=== PATIENT | male | born 1985 | race Caucasian/White ===

== ENCOUNTER 2020-07-11 22:37 | Emergency (ER) | payer OTHER, MEDICAID, SELFPAY ==
--- NOTE | 2020-07-11 22:38 | DI.RAD.S_ITS ---
PROCEDURE: XR CHEST 1V INDICATIONS: chest pain TECHNIQUE: One view of the chest was acquired. COMPARISON: [facility], CR, XR CHEST 2 VIEWS, 07/10/2020, 15:45. FINDINGS: Surgical changes and devices: None. Lungs and pleura: Lungs are clear. No pleural effusions or pneumothorax. Mediastinum: Mediastinal contours appear normal. Heart size is normal. Bones and chest wall: No suspicious bony lesions. Overlying soft tissues appear unremarkable. IMPRESSION: No acute cardiopulmonary disease process. Dictated by: Julia Lira MD, PhD on 07/12/2020 at 8:16 Approved by: Julia Lira MD, PhD on 07/12/2020 at 8:26
[2020-07-11 22:47] VITALS: BP 154/100; PULSE 101; RESP 20; TEMP 36.9; O2SAT 96; BMI 20.1
[2020-07-11] MEDS: KETOROLAC 60 MG/2 ML VIAL 15 MG IV (22:50)
[2020-07-11 22:55] LABS: Add Manual Diff / Slide Review NO; Basophils Absolute Auto 100 /uL (0-100); Basophils Percent Auto 0.9 % (0-2); Eosinophils Absolute Auto 200 /uL (0-450); Eosinophils Percent Auto 1.3 % (2-4); Hematocrit 37.6 % (41-53); Hemoglobin 12.6 g/dL (13.5-17.5); Lymphocytes Absolute Auto 2500 /uL (1100-4500); Lymphocytes Percent Auto 15.4 % (25-40); Mean Corpuscular HGB Conc 33.6 % (30-36); Mean Corpuscular Hemoglobin 31.2 PG (26-34); Mean Corpuscular Volume 92.8 fL (80-100); Monocytes Absolute Auto 1700 /uL (0-900); Monocytes Percent Auto 10.5 % (3-14); Neutrophils Absolute Auto 11800 /uL (1500-7000); Neutrophils Percent Auto 71.9 % (50-75); Platelet Count 246 X10^3/uL (150-400); Red Blood Cell Count 4.05 X10^6/uL (4.5-5.9); Red Cell Distribution Width 13.8 % (11.6-14.8); White Blood Cell Count 16.4 X10^3/uL (4.5-11.0)
[2020-07-11 23:03] VITALS: BP 147/93; PULSE 105; RESP 20; O2SAT 97
--- NOTE | 2020-07-11 23:03 | PC.NURSE ---
Pt's IV does not draw. Butterfly needle used to get first set of BC. Pt refused 2nd stick for the 2nd set of BC from myself or the lab.
[2020-07-11 23:05] LABS: Prothrombin Time 11.6 SECONDS (10.1-12.7)
[2020-07-11 23:06] LABS: Creatine Kinase 498 U/L (55-170); Lipase 107 U/L (23-300); Magnesium 1.9 mg/dL (1.6-2.3)
[2020-07-11 23:08] LABS: PTT Partial Thromboplastin Tim 28 SECONDS (26.4-36.2)
[2020-07-11 23:17] LABS: D Dimer < 200 ng/mL (<230)
[2020-07-11 23:18] LABS: Erythrocyte Sedimentation Rate 23 MM/HR (0-15)
[2020-07-11 23:19] LABS: NT-proBNP (BNP-Adult 18+) 58 pg/mL (<125); Troponin I 0.021 ng/mL (0.01-0.034)
[2020-07-11 23:21] LABS: CKMB % Relative Index 1.2 % (1.5-5.0); Creatine Kinase MB 6.15 ng/mL (<2.37)
[2020-07-11 23:25] LABS: C-Reactive Protein Quant 2.8 mg/dL (<1.0)
[2020-07-11 23:26] LABS: Procalcitonin 0.11 ng/mL (<0.5)
[2020-07-11 23:30] VITALS: BP 136/94; PULSE 114; RESP 20; O2SAT 98
--- NOTE | 2020-07-12 00:09 | ED.CHESTPAIN ---
HPI - Chest Pain General Chief Complaint: Chest Pain Stated Complaint: Chest pain Time Seen by Provider: 07/11/20 22:38 Source: patient and EMS Mode of arrival: EMS Limitations: no limitations History of Present Illness HPI narrative: 35M daily smoker with non-contributory medical history presents with the chief complaint of chest pain in his left chest for multiple days. He denies dizziness, weakness, lightheadedness. He denies any fever or chills. He denies runny nose, sore throat or cough. He states his pain is sharp and stabbing and worse with a deep breath and moving. He denies any injury. It is not associated with nausea, vomiting or diarrhea. He denies any exposure to persons known to have COVID. He denies any use of IV drugs. He denies any recent travel MD complaint: chest pain Onset (ago): day(s) Duration: constant Pain location: left chest Severity: moderate Quality: sharp Pain radiation: back and neck Relieving factors: rest Exacerbating factors: inspiration and movement Treatments prior to arrival chest pain: none Related Data Previous Rx's Medication Instructions Recorded colchicine 0.6 mg PO BID 90 Days #180 cap 07/12/20 Allergies Allergy/AdvReac Type Severity Reaction Status Date / Time No Known Drug Allergies Allergy Verified 07/11/20 22:50 Review of Systems Constitutional Constitutional: Denies chills, Denies fatigue, Denies fever(s), Denies frequent falls, Denies lethargy and Denies weakness Eyes Eyes: Denies change in vision, Denies eye discharge, Denies irritation and Denies loss of vision ENT Ears, Nose, Mouth, and Throat: Denies change in voice, Denies dizziness, Denies neck pain, Denies sore throat and Denies throat swelling Cardiovascular Cardiovascular: Reports chest pain, Denies irregular heart rhythm, Denies lightheadedness, Denies palpitations, Denies dyspnea, Denies dyspnea on exertion and Denies orthopnea Respiratory Respiratory: Denies cough, Denies dyspnea, Denies dyspnea on exertion and Denies wheezing Gastrointestinal Gastrointestinal: Denies abdominal pain, Denies change in bowel habits, Denies diarrhea, Denies nausea and Denies vomiting Musculoskeletal Musculoskeletal: Denies neck pain and Denies numbness Integumentary/Breasts Skin/Breast: Denies pruritus, Denies erythema, Denies rash and Denies wounds Neurologic Neurologic: Denies behavioral changes, Denies confusion, Denies dizziness, Denies frequent falls, Denies loss of vision, Denies numbness and Denies weakness Psychiatric Psychiatric: Denies anxiety, Denies behavioral changes, Denies confusion, Denies depression, Denies homicidal ideation and Denies suicidal ideation Endocrine Endocrine: Denies fatigue, Denies flushing and Denies palpitations Hematologic/Lymphatic Hematologic/Lymphatic: Denies easy bruising Allergic/Immunologic Allergic/Immunologic: Denies urticaria, Denies throat swelling and Denies wheezing Patient History Social History Smoking Status: Current every day smoker Smoking Status: Current every day smoker tobacco type: cigarettes Substance Use Type: former substance user Exam Narrative Exam Narrative: GENERAL: [35] year old patient appears stated age. Well-nourished, well-developed patient, in mild distress. HEAD: Atraumatic. Normocephalic. EYES: Pupils equal round and reactive. Extraocular motions intact. No scleral icterus. No injection or drainage. ENT: Nose without bleeding, purulent drainage. Throat without erythema, tonsillar hypertrophy or exudate. Airway patent. NECK: Trachea midline. Non tender CARDIOVASCULAR: Regular rate and rhythm without murmurs, gallops, or rubs. RESPIRATORY: Clear to auscultation. Breath sounds equal bilaterally. No wheezes, rales, or rhonchi. GASTROINTESTINAL: Abdomen soft, non-tender, nondistended. EXTREMITIES: No edema or joint tenderness. BACK: Nontender without deformity or crepitance. No flank tenderness. NEURO: AOx3. SKIN: No rash or erythema of visible areas Initial Vital Signs Initial Vital Signs: Vital Signs Temperature 98.4 F 07/11/20 22:47 Pulse Rate 101 H 07/11/20 22:47 Respiratory Rate 20 07/11/20 22:47 Blood Pressure 154/100 H 07/11/20 22:47 Pulse Oximetry 96 07/11/20 22:47 Course Orders Ordered: ED Orders 07/11/20 22:38 XR chest 1V Stat EKG-12 Lead Stat 07/11/20 22:44 C-Reactive Protein Quant Stat Complete Blood Count AUTO DIFF Stat D Dimer Stat Erythrocyte Sedimentation Rate Stat Lipase Stat Magnesium Stat NT-proBNP (BNP-Adult 18+) Stat Partial Thromboplastin Time Stat Procalcitonin Stat Prothrombin Time INR Stat Troponin & CK Cardiac Panel Stat 07/11/20 22:47 Blood Culture Stat 07/12/20 00:14 EKG-12 Lead Stat Discontinued Medications Colchicine (Colcrys) 0.6 mg PO NOW ONE Stop: 07/12/20 00:30 Last Admin: 07/12/20 00:44 Dose: 0.6 mg Documented by: VAL Ketorolac Tromethamine (Toradol) 15 mg IV NOW ONE Stop: 07/11/20 22:38 Last Admin: 07/11/20 22:50 Dose: 15 mg Documented by: VAL Vital Signs Vital signs: Vital Signs - 8 hr 07/11/20 22:47 07/11/20 23:03 07/11/20 23:30 Temperature 98.4 F Pulse Rate 101 H 105 H 114 H Respiratory Rate 20 20 20 Blood Pressure 154/100 H 147/93 H 136/94 H Pulse Oximetry 96 97 98 07/12/20 00:29 07/12/20 00:30 Temperature Pulse Rate 104 H 99 H Respiratory Rate 24 25 H Blood Pressure 160/101 H 151/95 H Pulse Oximetry 97 97 MDM - Chest Pain Lab Data Result diagrams: 07/11/20 22:44 Labs: Lab Results 07/11/20 07/11/20 07/11/20 Range/Units 22:44 22:44 22:44 WBC 16.4 H (4.5-11.0) X10^3/uL RBC 4.05 L (4.5-5.9) X10^6/uL Hgb 12.6 L (13.5-17.5) g/dL Hct 37.6 L (41-53) % MCV 92.8 (80-100) fL MCH 31.2 (26-34) PG MCHC 33.6 (30-36) % RDW 13.8 (11.6-14.8) % Plt Count 246 (150-400) X10^3/uL Neut % (Auto) 71.9 (50-75) % Lymph % (Auto) 15.4 L (25-40) % [place] % (Auto) 10.5 (3-14) % Eos % (Auto) 1.3 L (2-4) % Baso % (Auto) 0.9 (0-2) % Neut # (Auto) 65166 H (7598-0242) /uL Lymph # (Auto) 2500 (5176-3896) /uL [place] # (Auto) 1700 H (0-900) /uL Eos # (Auto) 200 (0-450) /uL Baso # (Auto) 100 (0-100) /uL ESR 23 H (0-15) MM/HR PT 11.6 (10.1-12.7) SECONDS INR 1.0 (0.9-1.3) APTT 28 (26.4-36.2) SECONDS D-Dimer (<230) ng/mL Magnesium 1.9 (1.6-2.3) mg/dL Total Creatine Kinase 498 H (55-170) U/L CK-MB (CK-2) 6.15 H (<2.37) ng/mL CK-MB (CK-2) Rel Index 1.2 L (1.5-5.0) % Troponin I 0.021 (0.01-0.034) ng/mL C-Reactive Protein 2.8 H (<1.0) mg/dL NT-Pro-B Natriuret Pep 58 (<125) pg/mL Lipase 107 (23-300) U/L Procalcitonin (<0.5) ng/mL 07/11/20 07/11/20 Range/Units 22:44 22:44 WBC (4.5-11.0) X10^3/uL RBC (4.5-5.9) X10^6/uL Hgb (13.5-17.5) g/dL Hct (41-53) % MCV (80-100) fL MCH (26-34) PG MCHC (30-36) % RDW (11.6-14.8) % Plt Count (150-400) X10^3/uL Neut % (Auto) (50-75) % Lymph % (Auto) (25-40) % [place] % (Auto) (3-14) % Eos % (Auto) (2-4) % Baso % (Auto) (0-2) % Neut # (Auto) (2653-8556) /uL Lymph # (Auto) (0167-0751) /uL [place] # (Auto) (0-900) /uL Eos # (Auto) (0-450) /uL Baso # (Auto) (0-100) /uL ESR (0-15) MM/HR PT (10.1-12.7) SECONDS INR (0.9-1.3) APTT (26.4-36.2) SECONDS D-Dimer < 200 (<230) ng/mL Magnesium (1.6-2.3) mg/dL Total Creatine Kinase (55-170) U/L CK-MB (CK-2) (<2.37) ng/mL CK-MB (CK-2) Rel Index (1.5-5.0) % Troponin I (0.01-0.034) ng/mL C-Reactive Protein (<1.0) mg/dL NT-Pro-B Natriuret Pep (<125) pg/mL Lipase (23-300) U/L Procalcitonin 0.11 (<0.5) ng/mL ECG Data Interpretation: EKG is normal sinus rhythm rate [ 100] and free of any signs of ischemia or ectopy. MT depressions in majority of leads, widespread mild ST elevation consistent with pericarditis MDM Narrative Medical decision making narrative: 35M with pleuritic chest pain, normal troponin, elevated inflammatory markers, EKG noting MT depressions and subtle widespread ST elevations consistent with pericarditis. No fever, IVDA, chills, endocarditis is considered, but thought less likely. PE considered, but negative D Dimer makes this unlikely. Patient treated for pericarditis and given extensive return precautions. Questions answered to his satisfaction Discharge Plan Departure Patient Disposition: Home Clinical Impression: Atypical chest pain Pericarditis Qualifiers: Pericarditis type: unspecified type Chronicity: acute Qualified Code(s): I30.9 - Acute pericarditis, unspecified Discharge Date/Time: 07/12/20 00:50 Instructions: DI for Pericarditis Activity Restrictions/Additional Instructions: *You have been diagnosed with [ atypical chest pain, likely from pericarditis] *What to do: *Take medications as directed *Follow up with your primary care provider in 2-3 days, call for an appointment. Let them know you were seen in the Emergency Department and that we ask that you be seen in follow up *Return to ER if you should have any new, worsening or concerning symptoms, such as [fever, shaking chills, worsening pain or other bothersome symptoms ] Prescriptions: New colchicine 0.6 mg capsule 0.6 mg PO BID 90 Days Qty: 180 RF: 0 Referrals: Located Within [facility] [Outside] Naya Gomez MD [Physician] -
[2020-07-12 00:29] VITALS: BP 160/101; PULSE 104; RESP 24; O2SAT 97
[2020-07-12 00:30] VITALS: BP 151/95; PULSE 99; RESP 25; O2SAT 97
[2020-07-12] MEDS: COLCHICINE 0.6 MG TABLET PO (00:44)
== END 2020-07-12 00:50 | disposition home or self-care (01) ==
PROVIDERS: Emergency Provider Emergency Medicine
DX: I30.9 Acute pericarditis, unspecified (principal)
CPT/HCPCS: 36415; 71045; 82550; 82553; 83690; 83735; 83880; 84145; 84484; 85025; 85379; 85610; 85651; 85730; 86140; 87040; 93005; 96374; 99284; J1885

== ENCOUNTER 2020-11-23 15:02 | Emergency (ER) | payer OTHER, MEDICAID, SELFPAY ==
[2020-11-23] VITALS (19 sets, daily range): BP systolic 148–215; BP diastolic 90–117; PULSE 95–113; RESP 16–26; TEMP 36.6; O2SAT 94–100
--- NOTE | 2020-11-23 16:07 | DI.RAD.S_ITS ---
PROCEDURE: XR CHEST 1V INDICATIONS: chest pain TECHNIQUE: One view of the chest was acquired. COMPARISON: [facility], CR, XR CHEST 2VW, 12/02/2016, 16:28. [facility], CR, XR [employer] [facility] CXR MIN 3VW LT, 06/19/2017, 6:35. [facility], CR, XR CHEST 2 VIEWS, 07/10/2020, 15:45. [facility], CR, XR CHEST 1V, 07/11/2020, 23:03. FINDINGS: Surgical changes and devices: None. Lungs and pleura: Lungs are clear. No pleural effusions or pneumothorax. Mediastinum: Mediastinal contours appear normal. Heart size is normal. Bones and chest wall: No suspicious bony lesions. Overlying soft tissues appear unremarkable. IMPRESSION: Portable chest within normal limits. Dictated by: Wong Houston M.D. on 11/23/2020 at 15:27 Approved by: Wong Houston M.D. on 11/23/2020 at 15:27
--- NOTE | 2020-11-23 16:08 | ED.CHESTPAIN ---
HPI - Chest Pain General Chief Complaint: Urogenital-Male Stated Complaint: States hearts just fluttering Time Seen by Provider: 11/23/20 15:08 Source: patient Mode of arrival: Ambulatory Limitations: no limitations History of Present Illness HPI narrative: 35-year-old male smoker, uses methamphetamine presents with a chief complaint of elevated blood pressure, and fluttering 1 chest over the course of the day. He denies any headache, blurred vision or focal neurologic findings. He denies any chest pain or significant shortness of breath. He has had no nausea, vomiting or diarrhea. He had his any fever, chills, urinary complaints such as dysuria, frequency or urgency. MD complaint: other Onset (ago): day(s) Duration: constant Onset: during rest Quality: tightness Relieving factors: nothing Exacerbating factors: nothing Treatments prior to arrival chest pain: none Related Data Previous Rx's Medication Instructions Recorded albuterol sulfate 2 puff INHALATION QID PRN #8.5 g 11/23/20 metoprolol tartrate 25 mg PO BID #30 tab 11/23/20 quetiapine [Seroquel] 300 mg PO BEDTIME #14 tab 11/23/20 Allergies Allergy/AdvReac Type Severity Reaction Status Date / Time No Known Drug Allergies Allergy Verified 07/11/20 22:50 Review of Systems Constitutional Constitutional: Denies chills, Denies fatigue, Denies fever(s), Denies frequent falls, Denies lethargy and Denies weakness Eyes Eyes: Denies change in vision, Denies eye discharge, Denies irritation and Denies loss of vision ENT Ears, Nose, Mouth, and Throat: Denies change in voice, Denies dizziness, Denies neck pain, Denies sore throat and Denies throat swelling Cardiovascular Cardiovascular: Denies chest pain, Denies irregular heart rhythm, Denies lightheadedness, Reports palpitations, Denies dyspnea, Denies dyspnea on exertion and Denies orthopnea Respiratory Respiratory: Denies cough, Denies dyspnea, Denies dyspnea on exertion and Denies wheezing Gastrointestinal Gastrointestinal: Denies abdominal pain, Denies change in bowel habits, Denies diarrhea, Denies nausea and Denies vomiting Musculoskeletal Musculoskeletal: Denies neck pain and Denies numbness Integumentary/Breasts Skin/Breast: Denies pruritus, Denies erythema, Denies rash and Denies wounds Neurologic Neurologic: Denies behavioral changes, Denies confusion, Denies dizziness, Denies frequent falls, Denies loss of vision, Denies numbness and Denies weakness Psychiatric Psychiatric: Denies anxiety, Denies behavioral changes, Denies confusion, Denies depression, Denies homicidal ideation and Denies suicidal ideation Endocrine Endocrine: Denies fatigue, Denies flushing and Reports palpitations Hematologic/Lymphatic Hematologic/Lymphatic: Denies easy bruising Allergic/Immunologic Allergic/Immunologic: Denies urticaria, Denies throat swelling and Denies wheezing Patient History Social History Smoking Status: Current every day smoker substance use type: marijuana, IV drugs and methamphetamine Smoking Status: Current every day smoker tobacco type: cigarettes alcohol intake frequency: holidays/special occasions only Substance Use Type: heroin and methamphetamine Exam Narrative Exam Narrative: GENERAL: [35] year old patient appears stated age. Well-nourished, well-developed patient, in mild distress. HEAD: Atraumatic. Normocephalic. EYES: Pupils equal round and reactive. Extraocular motions intact. No scleral icterus. No injection or drainage. ENT: Nose without bleeding, purulent drainage. Throat without erythema, tonsillar hypertrophy or exudate. Airway patent. NECK: Trachea midline. Non tender CARDIOVASCULAR: Regular rate and rhythm without murmurs, gallops, or rubs. RESPIRATORY: Clear to auscultation. Breath sounds equal bilaterally. No wheezes, rales, or rhonchi. GASTROINTESTINAL: Abdomen soft, non-tender, nondistended. EXTREMITIES: No edema or joint tenderness. BACK: Nontender without deformity or crepitance. No flank tenderness. NEURO: AOx3. SKIN: No rash or erythema of visible areas Initial Vital Signs Initial Vital Signs: Vital Signs Temperature 97.8 F 11/23/20 15:23 Pulse Rate 100 H 11/23/20 15:23 Respiratory Rate 18 11/23/20 15:23 Blood Pressure 198/117 H 11/23/20 15:23 Pulse Oximetry 100 11/23/20 15:23 Course Orders Ordered: Discontinued Medications Labetalol HCl (Labetalol 20 Mg/4 Ml Syringe) 10 mg IV NOW ONE Stop: 11/23/20 17:26 Last Admin: 11/23/20 17:58 Dose: 10 mg Documented by: ZGELEYN Metoprolol Tartrate (Metoprolol Ir 25 Mg Tablet) 50 mg PO NOW ONE Stop: 11/23/20 18:24 Last Admin: 11/23/20 18:36 Dose: 50 mg Documented by: ZAHRA Reevaluation(s) Reevaluation #1: Patient's palpitations resolved nearly immediately upon his arrival and no arrhythmia was noted. Vital Signs Vital signs: Vital Signs - 8 hr 11/23/20 15:23 11/23/20 15:30 11/23/20 16:00 Temperature 97.8 F Pulse Rate 100 H 98 H 97 H Respiratory Rate 18 16 19 Blood Pressure 198/117 H 193/107 H 215/110 H Pulse Oximetry 100 98 98 11/23/20 16:06 11/23/20 16:23 11/23/20 16:30 Temperature Pulse Rate 98 H 95 H 100 H Respiratory Rate 17 17 Blood Pressure 182/107 H 190/99 H Pulse Oximetry 99 98 98 11/23/20 16:40 11/23/20 16:50 11/23/20 17:00 Temperature Pulse Rate 102 H 105 H 103 H Respiratory Rate 17 18 18 Blood Pressure 196/101 H 184/101 H 194/106 H Pulse Oximetry 97 97 97 11/23/20 17:10 11/23/20 17:20 11/23/20 17:30 Temperature Pulse Rate 106 H 106 H 108 H Respiratory Rate 18 20 23 Blood Pressure 195/103 H 208/100 H 183/93 H Pulse Oximetry 97 97 96 11/23/20 17:40 11/23/20 17:50 11/23/20 17:58 Temperature Pulse Rate 108 H 113 H 108 H Respiratory Rate 23 26 H Blood Pressure 182/101 H 199/110 H 199/110 H Pulse Oximetry 95 95 11/23/20 18:00 11/23/20 18:04 11/23/20 18:10 Temperature Pulse Rate 112 H 100 H 96 H Respiratory Rate 20 20 18 Blood Pressure 203/109 H 167/90 H 179/97 H Pulse Oximetry 94 98 96 MDM - Chest Pain Lab Data Result diagrams: 11/23/20 16:15 11/23/20 16:15 Labs: Lab Results 11/23/20 11/23/20 11/23/20 Range/Units 16:15 16:15 16:15 WBC 13.0 H (4.5-11.0) X10^3/uL RBC 4.16 L (4.5-5.9) X10^6/uL Hgb 12.0 L (13.5-17.5) g/dL Hct 37.0 L (41-53) % MCV 89.0 (80-100) fL MCH 28.9 (26-34) PG MCHC 32.4 (30-36) % RDW 14.2 (11.6-14.8) % Plt Count 289 (150-400) X10^3/uL Neut % (Auto) 66.5 (50-75) % Lymph % (Auto) 17.5 L (25-40) % [place] % (Auto) 11.9 (3-14) % Eos % (Auto) 3.7 (2-4) % Baso % (Auto) 0.4 (0-2) % Neut # (Auto) 8700 H (3547-2215) /uL Lymph # (Auto) 2300 (0869-3980) /uL [place] # (Auto) 1600 H (0-900) /uL Eos # (Auto) 500 H (0-450) /uL Baso # (Auto) 100 (0-100) /uL PT 9.9 L (10.1-12.7) SECONDS INR 0.9 (0.9-1.3) APTT 29 (26.4-36.2) SECONDS Sodium 139 (137-145) mmol/L Potassium 3.4 (3.4-5.1) mmol/L Chloride 102 (98-107) mmol/L Carbon Dioxide 37 H (22-32) mmol/L BUN 19 (9-20) mg/dL Creatinine 0.75 (0.66-1.25) mg/dL Estimated GFR > 60.0 (>60) mL/min BUN/Creatinine Ratio 25.3 H (6-22) Glucose 111 H (70-100) mg/dL Calcium 8.7 (8.4-10.2) mg/dL Magnesium 2.1 (1.6-2.3) mg/dL Total Bilirubin < 0.1 L (0.2-1.3) mg/dL AST 23 (17-59) IU/L ALT 17 (<50) IU/L Alkaline Phosphatase 76 (38-126) U/L Total Creatine Kinase 86 (55-170) U/L CK-MB (CK-2) TNP CK-MB (CK-2) Rel Index TNP Troponin I < 0.012 (0.01-0.034) ng/mL Total Protein 6.3 (6.3-8.2) g/dL Albumin 3.4 L (3.5-5.0) g/dL Globulin 2.9 (1.7-4.1) g/dL Albumin/Globulin Ratio 1.2 (1.0-2.8) Lipase 169 (23-300) U/L Urine Color Urine Appearance Urine pH (4.5-8.0) Ur Specific [place] (1.000-1.035) Urine Protein (Negative) Urine Glucose (UA) (Negative) g/dL Urine Ketones (NEGATIVE) Urine Occult Blood (Negative) Urine Nitrate (Negative) Urine Bilirubin (NEGATIVE) Urine Urobilinogen (0.2) E.U./dL Ur Leukocyte Esterase (NEGATIVE) Urine RBC (0-5/HPF) Urine WBC (0-5/HPF) Amorphous Sediment Urine Bacteria (None) Ur Culture Indicated? U Opiates 300ng/mL cut (Negative) Ur Oxycodone Screen (Negative) Urine Methadone Screen (Negative) Ur Barbiturates Screen (Negative) U Tricyclic Antidepress (Negative) Ur Phencyclidine Scrn (Negative) Ur Amphetamines Screen (Negative) U Methamphetamines Scrn (Negative) Ur MDMA Scrn (Ecstasy) (Negative) U Benzodiazepines Scrn (Negative) Urine Cocaine Screen (Negative) U Marijuana (THC) Screen (Negative) Ur Chlamydia DNA (PCR) N gonorrhoeae DNA (PCR) 11/23/20 11/23/20 11/23/20 Range/Units 17:53 17:53 17:53 WBC (4.5-11.0) X10^3/uL RBC (4.5-5.9) X10^6/uL Hgb (13.5-17.5) g/dL Hct (41-53) % MCV (80-100) fL MCH (26-34) PG MCHC (30-36) % RDW (11.6-14.8) % Plt Count (150-400) X10^3/uL Neut % (Auto) (50-75) % Lymph % (Auto) (25-40) % [place] % (Auto) (3-14) % Eos % (Auto) (2-4) % Baso % (Auto) (0-2) % Neut # (Auto) (3587-3754) /uL Lymph # (Auto) (4353-4436) /uL [place] # (Auto) (0-900) /uL Eos # (Auto) (0-450) /uL Baso # (Auto) (0-100) /uL PT (10.1-12.7) SECONDS INR (0.9-1.3) APTT (26.4-36.2) SECONDS Sodium (137-145) mmol/L Potassium (3.4-5.1) mmol/L Chloride (98-107) mmol/L Carbon Dioxide (22-32) mmol/L BUN (9-20) mg/dL Creatinine (0.66-1.25) mg/dL Estimated GFR (>60) mL/min BUN/Creatinine Ratio (6-22) Glucose (70-100) mg/dL Calcium (8.4-10.2) mg/dL Magnesium (1.6-2.3) mg/dL Total Bilirubin (0.2-1.3) mg/dL AST (17-59) IU/L ALT (<50) IU/L Alkaline Phosphatase (38-126) U/L Total Creatine Kinase (55-170) U/L CK-MB (CK-2) CK-MB (CK-2) Rel Index Troponin I (0.01-0.034) ng/mL Total Protein (6.3-8.2) g/dL Albumin (3.5-5.0) g/dL Globulin (1.7-4.1) g/dL Albumin/Globulin Ratio (1.0-2.8) Lipase (23-300) U/L Urine Color Yellow Urine Appearance Slightly cloudy Urine pH 7.0 (4.5-8.0) Ur Specific [place] 1.015 (1.000-1.035) Urine Protein Negative (Negative) Urine Glucose (UA) Trace H (Negative) g/dL Urine Ketones Negative (NEGATIVE) Urine Occult Blood Negative (Negative) Urine Nitrate Negative (Negative) Urine Bilirubin Negative (NEGATIVE) Urine Urobilinogen 0.2 (0.2) E.U./dL Ur Leukocyte Esterase Negative (NEGATIVE) Urine RBC None seen (0-5/HPF) Urine WBC None seen (0-5/HPF) Amorphous Sediment 1+ Urine Bacteria None seen (None) Ur Culture Indicated? Cult not indicated U Opiates 300ng/mL cut Positive H (Negative) Ur Oxycodone Screen Negative (Negative) Urine Methadone Screen Negative (Negative) Ur Barbiturates Screen Negative (Negative) U Tricyclic Antidepress Negative (Negative) Ur Phencyclidine Scrn Negative (Negative) Ur Amphetamines Screen Positive H (Negative) U Methamphetamines Scrn Positive H (Negative) Ur MDMA Scrn (Ecstasy) Negative (Negative) U Benzodiazepines Scrn Negative (Negative) Urine Cocaine Screen Negative (Negative) U Marijuana (THC) Screen Positive H (Negative) Ur Chlamydia DNA (PCR) Not detected N gonorrhoeae DNA (PCR) Not detected ECG Data Interpretation: EKG is normal sinus rhythm rate [ 91] and free of any signs of ischemia or ectopy. No ST segmental elevation or depression. No T wave inversions. No DC depressions are widespread ST elevations MDM Narrative Medical decision making narrative: Multiple etiologies for patient's symptoms considered including: [Endocarditis thought unlikely given lack of pain or fever) versus pericarditis (thought unlikely given lack of pleuritic type chest pain, or classic EKG findings) versus palpitations or other benign tachyarrhythmia, due to high blood pressure and or methamphetamine use) or Patient's symptoms improved over duration of stay with above-stated therapies. Findings and discharge diagnosis discussed with patient/family followed by verbalization of understanding Return precautions discussed with patient/family whom verbalize understanding. Discharge Plan Departure Patient Disposition: Home Clinical Impression: Chest pain Qualifiers: Chest pain type: unspecified Qualified Code(s): R07.9 - Chest pain, unspecified Hypertension Qualifiers: Hypertension type: essential hypertension Qualified Code(s): I10 - Essential (primary) hypertension Instructions: Essential Hypertension Activity Restrictions/Additional Instructions: *You have been diagnosed with [ high blood pressure and medication refill. There is no indication of the inflammation around your heart that you had in the fall ] *What to do: *Take medications as directed *Follow up with your primary care provider in 2-3 days, call for an appointment. Let them know you were seen in the Emergency Department and that we ask that you be seen in follow up *Return to ER if you should have any new, worsening or concerning symptoms Prescriptions: New metoprolol tartrate 25 mg tablet 25 mg PO BID Qty: 30 RF: 0 albuterol sulfate 90 mcg/actuation HFA aerosol inhaler 2 puff inhalation QID PRN (Reason: shortness of breath or wheezing) Qty: 8.5 RF: 0 quetiapine [Seroquel] 300 mg tablet 300 mg PO BEDTIME Qty: 14 RF: 0 Referrals: Miscellaneous,Doctor, MD [Primary Care Provider] -
[2020-11-23 16:39] LABS: Add Manual Diff / Slide Review NO; Basophils Absolute Auto 100 /uL (0-100); Basophils Percent Auto 0.4 % (0-2); Eosinophils Absolute Auto 500 /uL (0-450); Eosinophils Percent Auto 3.7 % (2-4); Lymphocytes Absolute Auto 2300 /uL (1100-4500); Lymphocytes Percent Auto 17.5 % (25-40); Mean Corpuscular HGB Conc 32.4 % (30-36); Mean Corpuscular Hemoglobin 28.9 PG (26-34); Monocytes Absolute Auto 1600 /uL (0-900); Monocytes Percent Auto 11.9 % (3-14); Neutrophils Absolute Auto 8700 /uL (1500-7000); Neutrophils Percent Auto 66.5 % (50-75); Platelet Count 289 X10^3/uL (150-400); Red Blood Cell Count 4.16 X10^6/uL (4.5-5.9); Red Cell Distribution Width 14.2 % (11.6-14.8)
[2020-11-23 16:49] LABS: INR 0.9 (0.9-1.3); Prothrombin Time 9.9 SECONDS (10.1-12.7)
[2020-11-23 16:52] LABS: PTT Partial Thromboplastin Tim 29 SECONDS (26.4-36.2)
[2020-11-23 16:53] LABS: Alanine Aminotransferase 17 IU/L (<50); Albumin 3.4 g/dL (3.5-5.0); Albumin Globulin Ratio 1.2 (1.0-2.8); Alkaline Phosphatase 76 U/L (38-126); Aspartate Aminotransferase 23 IU/L (17-59); BUN Creatinine Ratio 25.3 (6-22); Blood Urea Nitrogen 19 mg/dL (9-20); Calcium 8.7 mg/dL (8.4-10.2); Carbon Dioxide 37 mmol/L (22-32); Chloride 102 mmol/L (98-107); Creatine Kinase 86 U/L (55-170); Estimated Glomerular Filt Rate > 60.0 mL/min (>60); Globulin 2.9 g/dL (1.7-4.1); Glucose 111 mg/dL (70-100); HEMOLYSIS < 15 (0-50); Lipase 169 U/L (23-300); Magnesium 2.1 mg/dL (1.6-2.3); Potassium 3.4 mmol/L (3.4-5.1); Sodium 139 mmol/L (137-145); Total Protein 6.3 g/dL (6.3-8.2)
[2020-11-23 16:54] LABS: Bilirubin Total < 0.1 mg/dL (0.2-1.3)
[2020-11-23 17:04] LABS: Troponin I < 0.012 ng/mL (0.01-0.034)
[2020-11-23] MEDS: LABETALOL 20 MG/4 ML SYRINGE 10 MG IV (17:58)
[2020-11-23 18:17] LABS: Bacteria Urine None Seen; RBC Urine None Seen (0-5/HPF); WBC Urine None Seen (0-5/HPF)
[2020-11-23 18:21] LABS: Bilirubin Urine UA NEGATIVE (NEGATIVE); Color Urine UA YELLOW; Glucose Urine UA TRACE g/dL (Negative); Ketones Urine UA NEGATIVE (NEGATIVE); Leukocyte Esterase Urine UA NEGATIVE (NEGATIVE); Nitrite Urine UA NEGATIVE (Negative); Occult Blood Urine UA NEGATIVE (Negative); Protein Urine UA NEGATIVE (Negative); Specific Gravity Urine UA 1.015 (1.000-1.035); Urobilinogen Urine UA 0.2 E.U./dL (0.2)
[2020-11-23 18:33] LABS: Ur Creatinine Normal (Normal); Ur Specific Gravity Normal (Normal); Urine pH Normal (Normal)
[2020-11-23 18:34] LABS: UR Morphine/Opiate cutoff 300 Positive (Negative); Urine Amphetamines Positive (Negative); Urine Barbiturates Negative (Negative); Urine Benzodiazepines Negative (Negative); Urine Cocaine Negative (Negative); Urine MDMA Negative (Negative); Urine Methadone Negative (Negative); Urine Methamphetamines Positive (Negative); Urine Oxycodone Negative (Negative); Urine Phencyclidine Negative (Negative); Urine Tetrahydrocannabinol Positive (Negative); Urine Tricyclic Antidepressant Negative (Negative)
[2020-11-23 18:36] LABS: Appearance Urine UA Slightly Cloudy
[2020-11-23] MEDS: METOPROLOL IR 25 MG TABLET 50 MG PO (18:36)
[2020-11-23 18:44] LABS: Amorphous Sediment Urine 1+; Culture Indicated Urine Cult Not Indicated
[2020-11-23 19:50] LABS: Urine N gonorrhoeae NOT DETECTED
[2020-11-23 20:00] LABS: Urine Chlamydia NOT DETECTED
== END 2020-11-23 18:48 | disposition home or self-care (01) ==
PROVIDERS: Emergency Provider Emergency Medicine
DX: R07.9 Chest pain, unspecified (principal); I10 Essential (primary) hypertension; R00.2 Palpitations; R30.0 Dysuria; Z11.3 Encounter for screening for infections with a predominantly sexual mode of transmission; F12.90 Cannabis use, unspecified, uncomplicated; F15.10 Other stimulant abuse, uncomplicated
CPT/HCPCS: 36415; 71045; 80053; 80305; 81001; 82550; 83690; 83735; 84484; 85025; 85610; 85730; 87491; 87591; 93005; 93010; 96374; 99283; 99284

== ENCOUNTER 2022-11-16 18:02 | Inpatient (IN) | payer MEDICAID, SELFPAY ==
[2022-11-16] VITALS (48 sets, daily range): BP systolic 182–267; BP diastolic 96–143; PULSE 60–89; RESP 10–53; TEMP 36.6–37.1; O2SAT 92–100; BMI 20.6
--- NOTE | 2022-11-16 18:18 | DI.RAD.S_ITS ---
PROCEDURE: XR CHEST 1V INDICATIONS: chest pain TECHNIQUE: One view of the chest was acquired. COMPARISON: [facility], CR, XR CHEST 1V, 11/23/2020, 16:18. [facility], CR, XR CHEST 1V, 07/11/2020, 23:03. FINDINGS: Surgical changes and devices: None. Lungs and pleura: No consolidation. No pleural effusions or pneumothorax. Mediastinum: Cardiac silhouette is within normal limits for size. Bones and chest wall: No suspicious bony lesions. Overlying soft tissues appear unremarkable. IMPRESSION: No acute cardiopulmonary abnormality. Dictated by: Dariel Dhaliwal M.D. on 11/16/2022 at 19:11 Approved by: Dariel Dhaliwal M.D. on 11/16/2022 at 19:13
[2022-11-16] MEDS: SODIUM CHLORIDE 0.9% 1,000 ML 150 ML IV (18:31)
[2022-11-16] MEDS: HYDRALAZINE 20 MG/ML VIAL 10 MG IV ×2 (18:31→18:52)
--- NOTE | 2022-11-16 19:02 | ED_ITS ---
HPI - General Adult General Chief complaint: Hypertension Stated complaint: headache/swollen back of neck Time Seen by Provider: 11/16/22 18:18 Source: patient Mode of arrival: Ambulatory History of Present Illness HPI narrative: 37-year-old male daily smoker with history methamphetamine and PERC 30 use states he last used sometime this morning, denies any history of IV drug abuse, does have a history of endocarditis presents with a chief complaint of a fullness and discomfort in the back of his head and neck. He is got a generalized headache without obvious provocation or palliation. He denies neurologic symptoms such as blurred vision, trouble with speech, dizziness or numbness, tingling and weakness of extremities. He denies any chest pain or shortness of breath but does have generalized abdominal pain. He is mildly nauseous but denies any vomiting. He does state he has a history of blood pressure problems he thinks but does not take any medications Related Data Previous Rx's Medication Instructions Recorded metoprolol tartrate 25 mg tablet 25 mg PO BID #30 tabs 11/23/20 quetiapine 300 mg tablet (Seroquel) 300 mg PO BEDTIME #14 tabs 11/23/20 Allergies Allergy/AdvReac Type Severity Reaction Status Date / Time No Known Drug Allergies Allergy Verified 11/16/22 18:50 Review of Systems Review of Systems Narrative: GENERAL: See HPI HEENT: Denies sinus pain, ear pain, sore throat, difficulty swallowing, dizziness. RESPIRATORY: Denies dyspnea, cough, wheezing, hemoptysis, sputum. CARDIOVASCULAR: Denies chest pain, palpitations, orthopnea, edema, GASTROINTESTINAL: Denies nausea, vomiting, abdominal pain, diarrhea, constipation, melena. : Denies dysuria, frequency, incontinence, hematuria, urinary retention. MUSCULOSKELETAL: denies weakness, joint pain, or bony pain SKIN: Denies rash, skin lesions, or other NEUROLOGIC: See HPI PSYCHIATRIC: No concerning psychosocial issues. 12 point review of systems is negative except for those stated above Patient History Medical History Polysubstance abuse Social History Smoking Status: Current every day smoker substance use type: marijuana, IV drugs and methamphetamine Smoking Status: Current every day smoker tobacco type: cigarettes alcohol intake frequency: holidays/special occasions only Substance Use Type: heroin, opiates, painkillers, methamphetamine and presc ription drug Exam Narrative Exam Narrative: GENERAL: [37] year old patient appears stated age. Well-developed patient, in mild distress. GCS 15 HEAD: Atraumatic. Normocephalic. EYES: Pupils equal round and reactive. Extraocular motions intact. No scleral icterus. No injection or drainage. ENT: Nose without bleeding, purulent drainage. Throat without erythema, tonsillar hypertrophy or exudate. Airway patent. NECK: Trachea midline. Non tender. No meningeal signs CARDIOVASCULAR: Regular rate and rhythm without murmurs, gallops, or rubs. RESPIRATORY: Clear to auscultation. Breath sounds equal bilaterally. No wheezes, rales, or rhonchi. GASTROINTESTINAL: Abdomen soft, non-tender, nondistended. EXTREMITIES: No edema or joint tenderness. BACK: Nontender without deformity or crepitance. No flank tenderness. NEURO: AOx3. SKIN: No rash or erythema of visible areas Initial Vital Signs Initial Vital Signs: Vital Signs Temperature 97.9 F 11/16/22 18:07 Pulse Rate 71 11/16/22 18:07 Respiratory Rate 15 11/16/22 18:07 Blood Pressure 230/131 H 11/16/22 18:07 Pulse Oximetry 95 11/16/22 18:07 Oxygen Delivery Method 11/16/22 18:07 Course Orders Ordered: ED Orders 11/16/22 22:19 COVID19 -Nasal RAPID/Pre-Proc Stat 11/17/22 01:03 Consult to Tele-alcohol rubber Routine 11/17/22 01:15 CMP [Comprehensive Metabolic Panel] DAILY 11/17/22 05:00 CBC Auto Diff [Complete Blood Count AUTO DIFF] DAILY Magnesium DAILY 11/18/22 01:15 CMP [Comprehensive Metabolic Panel] DAILY 11/18/22 05:00 CBC Auto Diff [Complete Blood Count AUTO DIFF] DAILY Magnesium DAILY Acetaminophen (Acetaminophen 325 Mg Tablet) 650 mg PO Q6H PRN PRN Reason: Fever/Mild Pain (1-3) Enoxaparin Sodium (Enoxaparin 40 Mg/0.4 Ml Syringe) 40 mg SUBCUT DAILY LEONARDO Hydromorphone HCl (Hydromorphone 0.5 Mg Inj) 0.5 mg IV Q4H PRN PRN Reason: Pain, Severe (7-10) Hydromorphone HCl (Hydromorphone 1 Mg Inj) 1 mg IV Q4H PRN PRN Reason: Breakthrough Pain Nicardipine HCl 25 mg/ Sodium (Chloride) 250 mls @ 50 mls/hr IV TITRATE LEONARDO; Protocol Last Titration: 11/17/22 04:20 Dose: 2.5 mg/hr, 25 mls/hr Documented By: Titration: 11/17/22 04:02 Dose: 5 mg/hr, 50 mls/hr Documented By: Titration: 11/16/22 23:32 Dose: 2.5 mg/hr, 25 mls/hr Documented By: Admin: 11/16/22 22:42 Dose: 5 mg/hr, 50 mls/hr Documented By: NATY Lactated Ringer's (Lactated Ringers) 1,000 mls @ 75 mls/hr IV CONT LEONARDO Last Admin: 11/17/22 03:07 Dose: 75 mls/hr Documented By: SURESH Lorazepam (Lorazepam 2 Mg/Ml Inj) 1 mg IV Q4HR PRN PRN Reason: Anxiety Last Admin: 11/17/22 04:45 Dose: 1 mg Documented By: Admin: 11/16/22 20:27 Dose: 1 mg Documented By: YULISA Metoprolol Tartrate (Metoprolol Ir 25 Mg Tablet) 25 mg PO BID LEONARDO Naloxone HCl (Naloxone 0.4 Mg/Ml Vial) 0.2 mg IV Q2MIN PRN PRN Reason: Opiate Reversal Oxycodone HCl (Oxycodone Ir 5 Mg Tablet) 5 mg PO Q3H PRN PRN Reason: Pain, Moderate (4-6) Last Admin: 11/17/22 03:07 Dose: 5 mg Documented By: SURESH Quetiapine Fumarate (Quetiapine 100 Mg Tablet) 300 mg PO BEDTIME LEONARDO Discontinued Medications Hydralazine HCl (Hydralazine 20 Mg/Ml Vial) 10 mg IV NOW ONE Stop: 11/16/22 18:29 Last Admin: 11/16/22 18:31 Dose: 10 mg Documented By: YULISA Hydralazine HCl (Hydralazine 20 Mg/Ml Vial) 10 mg IV NOW ONE Stop: 11/16/22 18:48 Last Admin: 11/16/22 18:52 Dose: 10 mg Documented By: YULISA Sodium Chloride (Normal Saline 0.9%) 1,000 mls @ 150 mls/hr IV CONT LEONARDO Last Infusion: 11/17/22 01:12 Dose: 0 mls/hr Documented By: Admin: 11/16/22 18:31 Dose: 150 mls/hr Documented By: YULISA Labetalol HCl (Labetalol 20 Mg/4 Ml Syringe) 20 mg IV NOW ONE; Protocol Stop: 11/16/22 19:02 Last Admin: 11/16/22 19:07 Dose: 20 mg Documented By: YULISA Metoprolol Tartrate (Metoprolol Ir 25 Mg Tablet) 50 mg PO NOW ONE Stop: 11/16/22 20:47 Last Admin: 11/16/22 21:05 Dose: 50 mg Documented By: YULISA Reevaluation(s) Reevaluation #1: Hydralazine 10mg x2 with minimal change on BP Labetalol 20mg IV with brief improvement Metop PO with no improvement, still in 220s Nicardipine ordered at 5 Consultations Consultation #1: hospiatlist happy to accept Vital Signs Vital signs: Vital Signs - 8 hr 11/16/22 22:47 11/16/22 23:00 11/16/22 23:15 Temperature 98.7 F Pulse Rate 80 80 81 Respiratory Rate 26 H 22 20 Blood Pressure 238/123 H 200/106 H 198/105 H Pulse Oximetry 99 98 98 Oxygen Delivery Method Room Air Room Air Room Air 11/16/22 23:30 11/17/22 00:00 11/17/22 00:15 Temperature Pulse Rate 89 71 76 Respiratory Rate 20 20 Blood Pressure 182/96 H 166/104 H 172/104 H Pulse Oximetry 98 98 98 Oxygen Delivery Method Room Air Room Air 11/17/22 00:30 11/17/22 00:45 11/17/22 01:16 Temperature Pulse Rate 74 81 74 Respiratory Rate Blood Pressure 168/94 H 207/115 H 170/93 H Pulse Oximetry 98 98 97 Oxygen Delivery Method Medical Decision Making Lab Data 11/16/22 19:08 11/16/22 19:08 Labs: Lab Results 11/16/22 11/16/22 11/16/22 Range/Units 19:08 19:08 19:15 WBC 9.4 (4.5-11.0) X10^3/uL RBC 4.75 (4.5-5.9) X10^6/uL Hgb 13.9 (13.5-17.5) g/dL Hct 42.5 (41-53) % MCV 89.5 (80-100) fL MCH 29.2 (26-34) PG MCHC 32.7 (30-36) % RDW 14.0 (11.6-14.8) % Plt Count 205 (150-400) X10^3/uL Neut % (Auto) 68.2 (50-75) % Lymph % (Auto) 20.5 L (25-40) % Edwards % (Auto) 9.0 (3-14) % Eos % (Auto) 1.1 L (2-4) % Baso % (Auto) 1.2 (0-2) % Neut # (Auto) 6400 (9395-3017) /uL Lymph # (Auto) 1900 (8848-1369) /uL Edwards # (Auto) 800 (0-900) /uL Eos # (Auto) 100 (0-450) /uL Baso # (Auto) 100 (0-100) /uL PT 11.8 (10.1-12.7) SECONDS INR 1.0 (0.9-1.3) Sodium 140 (137-145) mmol/L Potassium 3.7 (3.4-5.1) mmol/L Chloride 97 L (98-107) mmol/L Carbon Dioxide 33 H (22-32) mmol/L BUN 18 (9-20) mg/dL Creatinine 0.85 (0.66-1.25) mg/dL Estimated GFR > 60 (>60) mL/min BUN/Creatinine Ratio 21.2 (6-22) Glucose 99 (70-100) mg/dL Calcium 9.0 (8.4-10.2) mg/dL Total Bilirubin 0.5 (0.2-1.3) mg/dL AST 31 (17-59) IU/L ALT 20 (<50) IU/L Alkaline Phosphatase 77 (38-126) U/L Total Creatine Kinase 96 (55-170) U/L CK-MB (CK-2) TNP CK-MB (CK-2) Rel Index TNP Troponin I < 0.012 (0.01-0.034) ng/mL C-Reactive Protein < 0.5 (<1.0) mg/dL NT-Pro-B Natriuret Pep 1330 H (<125) pg/mL Total Protein 8.0 (6.3-8.2) g/dL Albumin 4.2 (3.5-5.0) g/dL Globulin 3.8 (1.7-4.1) g/dL Albumin/Globulin Ratio 1.1 (1.0-2.8) Lipase 43 (23-300) U/L SARS-CoV-2 (PCR) (Negative) 11/16/22 Range/Units 22:20 WBC (4.5-11.0) X10^3/uL RBC (4.5-5.9) X10^6/uL Hgb (13.5-17.5) g/dL Hct (41-53) % MCV (80-100) fL MCH (26-34) PG MCHC (30-36) % RDW (11.6-14.8) % Plt Count (150-400) X10^3/uL Neut % (Auto) (50-75) % Lymph % (Auto) (25-40) % Edwards % (Auto) (3-14) % Eos % (Auto) (2-4) % Baso % (Auto) (0-2) % Neut # (Auto) (2837-9336) /uL Lymph # (Auto) (7497-3240) /uL Edwards # (Auto) (0-900) /uL Eos # (Auto) (0-450) /uL Baso # (Auto) (0-100) /uL PT (10.1-12.7) SECONDS INR (0.9-1.3) Sodium (137-145) mmol/L Potassium (3.4-5.1) mmol/L Chloride (98-107) mmol/L Carbon Dioxide (22-32) mmol/L BUN (9-20) mg/dL Creatinine (0.66-1.25) mg/dL Estimated GFR (>60) mL/min BUN/Creatinine Ratio (6-22) Glucose (70-100) mg/dL Calcium (8.4-10.2) mg/dL Total Bilirubin (0.2-1.3) mg/dL AST (17-59) IU/L ALT (<50) IU/L Alkaline Phosphatase (38-126) U/L Total Creatine Kinase (55-170) U/L CK-MB (CK-2) CK-MB (CK-2) Rel Index Troponin I (0.01-0.034) ng/mL C-Reactive Protein (<1.0) mg/dL NT-Pro-B Natriuret Pep (<125) pg/mL Total Protein (6.3-8.2) g/dL Albumin (3.5-5.0) g/dL Globulin (1.7-4.1) g/dL Albumin/Globulin Ratio (1.0-2.8) Lipase (23-300) U/L SARS-CoV-2 (PCR) Negative (Negative) MDM Narrative Medical decision making narrative: [37-year-old male with posterior head and neck pain with elevated blood pressure] Multiple etiologies for patient's symptoms considered including, but not limited to: [HTN, ICH, vs. other] Prior Charts reviewed:prior ED visits Labs reviewed and interpreted by myself: no significant abnormalities though BNP is elevated. No CP or SOB Consultations: hospitalist happy to accept Patient's symptoms improved over duration of stay with above-stated therapies. Findings and discharge diagnosis discussed with patient/family followed by verbalization of understanding Return precautions discussed with patient/family whom verbalize understanding of diagnosis and plan Discharge Plan Departure Patient Disposition: Admitted As Inpatient Clinical Impression: Hypertensive emergency Admit Date/Time: 11/17/22 01:25 Admit Provider: Yennifer Cobian
[2022-11-16] MEDS: LABETALOL 20 MG/4 ML SYRINGE IV (19:07)
[2022-11-16 19:15] LABS: Add Manual Diff / Slide Review NO; Basophils Absolute Auto 100 /uL (0-100); Basophils Percent Auto 1.2 % (0-2); Eosinophils Absolute Auto 100 /uL (0-450); Eosinophils Percent Auto 1.1 % (2-4); Hematocrit 42.5 % (41-53); Hemoglobin 13.9 g/dL (13.5-17.5); Lymphocytes Absolute Auto 1900 /uL (1100-4500); Lymphocytes Percent Auto 20.5 % (25-40); Mean Corpuscular HGB Conc 32.7 % (30-36); Mean Corpuscular Hemoglobin 29.2 PG (26-34); Mean Corpuscular Volume 89.5 fL (80-100); Monocytes Absolute Auto 800 /uL (0-900); Neutrophils Absolute Auto 6400 /uL (1500-7000); Neutrophils Percent Auto 68.2 % (50-75); Platelet Count 205 X10^3/uL (150-400); Red Blood Cell Count 4.75 X10^6/uL (4.5-5.9); White Blood Cell Count 9.4 X10^3/uL (4.5-11.0)
[2022-11-16 19:23] LABS: HEMOLYSIS < 15 (0-50)
--- NOTE | 2022-11-16 19:23 | PC.NURSE ---
Went into pt room to find pt w/ family practice physician using foreign brown substance. Removed from him. Dr. Wilson aware. all belongings placed in locked area.
[2022-11-16 19:38] LABS: Prothrombin Time 11.8 SECONDS (10.1-12.7)
[2022-11-16 19:40] LABS: NT-proBNP (BNP-Adult 18+) 1330 pg/mL (<125); Troponin I < 0.012 ng/mL (0.01-0.034)
--- NOTE | 2022-11-16 19:46 | PC.NURSE ---
+ meth / fentanyl use. + headache that is now improved after blood pressure improved. Neuro intact throughout.
[2022-11-16 19:48] LABS: Alanine Aminotransferase 20 IU/L (<50); Albumin 4.2 g/dL (3.5-5.0); Albumin Globulin Ratio 1.1 (1.0-2.8); Alkaline Phosphatase 77 U/L (38-126); Aspartate Aminotransferase 31 IU/L (17-59); BUN Creatinine Ratio 21.2 (6-22); Bilirubin Total 0.5 mg/dL (0.2-1.3); Blood Urea Nitrogen 18 mg/dL (9-20); C-Reactive Protein Quant < 0.5 mg/dL (<1.0); Carbon Dioxide 33 mmol/L (22-32); Chloride 97 mmol/L (98-107); Creatine Kinase 96 U/L (55-170); Estimated Glomerular Filt Rate > 60 mL/min (>60); Globulin 3.8 g/dL (1.7-4.1); Glucose 99 mg/dL (70-100); Lipase 43 U/L (23-300); Potassium 3.7 mmol/L (3.4-5.1); Sodium 140 mmol/L (137-145)
[2022-11-16] MEDS: LORazepam 2 MG/ML INJ 1 MG IV (20:27)
[2022-11-16] MEDS: METOPROLOL IR 25 MG TABLET 50 MG PO (21:05)
[2022-11-16] MEDS: NICARDIPINE 25 MG in SODIUM CHLORIDE 0.9% 240 ML 50 MG IV (22:42)
[2022-11-16 22:47] LABS: COVID19 -Nasal RAPID Negative (Negative)
[2022-11-17] VITALS (36 sets, daily range): BP systolic 164–213; BP diastolic 93–129; PULSE 65–104; RESP 14–40; TEMP 37.3; O2SAT 95–100; BMI 19.5
[2022-11-17 01:37] LABS: UR Morphine/Opiate cutoff 300 Negative (Negative); Ur Creatinine Normal (Normal); Ur Specific Gravity Normal (Normal); Urine Amphetamines Positive (Negative); Urine Barbiturates Negative (Negative); Urine Benzodiazepines Negative (Negative); Urine Cocaine Negative (Negative); Urine MDMA Negative (Negative); Urine Methadone Negative (Negative); Urine Methamphetamines Positive (Negative); Urine Oxycodone Negative (Negative); Urine Phencyclidine Negative (Negative); Urine Tetrahydrocannabinol Negative (Negative); Urine Tricyclic Antidepressant Negative (Negative); Urine pH Normal (Normal)
--- NOTE | 2022-11-17 02:04 | DI.ECHO.S_ITS ---
[place]---------+ [facility] +---------+ : : [address] : : : : [id number] : : : : Phone: [phone]+ Echocardiogram Report + + :Name: NEIL BRIDGES Study Date: 11/17/2022 Height: 67 in : :[facility] ReadingLocation: Weight: 131 lb : : Gender: Male BSA: 1.7 m2 : :: 1985 Age: 37 yrs BP: 185/102 mmHg: :Reason For Study: HYPTENSIVE URGENCY, MALIGNANT, METH USE : :Ordering Physician: BARBIE, : :MATILDE Performed By: Maria Dolores Thacker : :Referring: MATILDE VALENTIN : + + Interpretation Summary There is mild-moderate concentric left ventricular hypertrophy. Left ventricular systolic function appears normal without focal wall motion abnormalities. The ejection fraction is estimated to be 60-65%. Diastolic parameters suggest a relaxation abnormality of the left ventricle, consistent with probable normal filling pressures. The right ventricle is normal in size and function. The left atrial size is normal. Right atrial size is normal. There is no significant valvular heart disease. No obvious vegetative masses. The aortic root is mildly dilated. Procedure: A two-dimensional transthoracic echocardiogram with color flow and Doppler was performed. Images from the parasternal window were difficult to obtain and are suboptimal in quality. The study quality was technically adequate. Comparison is made with the echocardiogram of 06/24/2021. The patient was in sinus rhythm with heart rates between 79-92 bpm during the exam. Left Ventricle: The left ventricle is normal in size. There is mild-moderate concentric left ventricular hypertrophy. Left ventricular systolic function appears normal without focal wall motion abnormalities. The ejection fraction is estimated to be 60-65%. Diastolic parameters suggest a relaxation abnormality of the left ventricle, consistent with probable normal filling pressures. Right Ventricle: The right ventricle is normal in size and function. Atria: The left atrial size is normal. Right atrial size is normal. There is no Doppler evidence for an interatrial shunt. Mitral Valve: The mitral valve leaflets appear normal. There is no evidence of stenosis, fluttering, or prolapse. There is trace mitral regurgitation. Aortic Valve: The aortic valve opens well. The aortic valve is grossly normal. There is no aortic valve stenosis. No aortic regurgitation is present. Tricuspid Valve: The tricuspid valve leaflets are thin and pliable. There is trace tricuspid regurgitation. Pulmonic Valve: The pulmonic valve is not well visualized. There is no significant valvular heart disease. Great Vessels: The aortic root is mildly dilated. The aortic arch could not be visualized. The ascending aorta could not be visualized. The IVC is of normal diameter and collapses greater than 50% with a sniff. This suggests a low right atrial pressure of 3 mm Hg. Pericardium/ Pleura There is no pericardial effusion. There is no pleural effusion. MMode/2D Measurements & Calculations LVIDd: 4.6 cm LVOT diam: 2.1 cm LVIDs: 2.9 cm Ao root diam: 4.1 cm FS: 36.0 % Ao Arch Diam (Prox Trans): 2.6 cm IVSd: 1.2 cm LVPWd: 1.3 cm LV major. diameter/BSA (cm/m^2): 2.7 LV sys. diameter/BSA (cm/m^2): 1.7 LA A2 area: 16.6 cm2 RA long axis: 5.0 cm LA A4 area: 15.4 cm2 RA area: 15.8 cm2 LA length (vol): 4.4 cm RA vol: 42.3 ml LA vol: 49.6 ml RA : 25.0 ml/m2 LA vol index: 29.3 ml/m2 IVC diam: 1.4 cm RVD1 (basal): 2.6 cm RVD2 (mid): 2.4 cm TAPSE: 2.0 cm Doppler Measurements & Calculations Ao V2 max: 129.7 cm/sec LVOT Max Mike: 128.4 cm/sec Ao V2 mean: 100.8 cm/sec LV V1 max P.6 mmHg Ao max P.7 mmHg LV V1 VTI: 21.9 cm Ao mean P.3 mmHg CARLOS(I,D): 3.2 cm2 Ao V2 VTI: 23.6 cm CARLOS(V,D): 3.4 cm2 sev ratio: 0.93 CARLOS indexed to BSA (cm^2/m^2): 1.9 MV E max mike: 46.7 cm/sec PA V2 max: 97.7 cm/sec MV A max mike: 108.9 cm/sec PA V2 mean: 70.2 cm/sec MV E/A: 0.43 PA mean P.2 mmHg Med Peak E' Mike: 5.3 cm/sec E/E' med: 8.8 Lat Peak E' Mike: 5.4 cm/sec E/E' lat: 8.7 E/e' average: 8.7 MV dec time: 0.18 sec MVA(VTI): 3.7 cm2 MV V2 mean: 76.5 cm/sec SV(LVOT): 75.9 ml MV mean P.7 mmHg MV V2 VTI: 20.3 cm Reading Physician:09:02 AM
--- NOTE | 2022-11-17 02:05 | P.HP_ITS ---
History of Present Illness History of Present Illness Date Patient Seen: 11/17/22 Time Patient Seen: 02:05 Chief complaint: headache/swollen back of neck Narrative: Unable to obtain a history directly from the patient. Per the ED provider, Ronen Howell is 29-year-old male daily smoker with history methamphetamine and PERC 30 use states he last used sometime this morning, denies any history of IV drug abuse, does have a history of endocarditis presents with a chief complaint of a fullness and discomfort in the back of his head and neck.? He is got a generalized headache without obvious provocation or palliation.? He denies neurologic symptoms such as blurred vision, trouble with speech, dizziness or numbness, tingling and weakness of extremities.? He denies any chest pain or shortness of breath but does have generalized abdominal pain.? He is mildly nauseous but denies any vomiting. For me, he states he finds it hard to urinate, feels like he has to have a bowel movement when he urinates and has new onset numbness of his right great toe. Chest xray is negative for any acute cardiopulmonary abnormality. EKG left ventricular hypertrophy. His temp is 99.2? blood pressure 172/106 heart rate 65 respiratory rate 15 oxygen saturation 99% on room air he weighs 56.5 kg with a BMI of 19.5. CBC is unremarkable, chemistries are unremarkable does have a elevated proBNP of 13 30 u/a negative for a UTI, urine toxicology is positive for methamphetamine and amphetamine. COVID-[address] of the head done emergently after he reached the unit due to possible mental status change concerning for a CVA due to prolonged hypertensive period, it is negative. Patient History Medical History (Updated 11/17/22 @ 02:28 by DUNG Dailey) Polysubstance abuse Family & Social History Family history unavailable: Yes Safety & Behavioral: Feels Safe in Current Yes Environment Been Physically Hurt or No Threatened By a Person Tobacco & Substance use: Smoking Status Current every day smoker alcohol intake frequency holiday/special occasion Substance Use Type opiates,painkillers,heroin,methamphetamine, prescription drug Meds Home Medications and Allergies Home Medications Medication Instructions Recorded Confirmed Type metoprolol tartrate 25 mg tablet 25 mg PO BID #30 tabs 11/23/20 11/16/22 Rx quetiapine 300 mg tablet (Seroquel) 300 mg PO BEDTIME #14 tabs 11/23/20 11/16/22 Rx Allergies Allergy/AdvReac Type Severity Reaction Status Date / Time No Known Drug Allergies Allergy Verified 11/16/22 18:50 Review of Systems Review of Systems ROS: Yes unobtainable due to mental status Exam Vital Signs (past 8 hours): - 11/16/22 18:07 11/16/22 18:32 11/16/22 18:20 Temperature 97.9 F Pulse Rate 71 61 Respiratory Rate 15 12 Blood Pressure 230/131 H 235/136 H 220/116 H Pulse Oximetry 95 98 Oxygen Delivery Method Room Air Room Air 11/16/22 18:21 11/16/22 18:30 11/16/22 18:30 Temperature Pulse Rate 67 Respiratory Rate 11 L Blood Pressure 242/136 H 238/130 H Pulse Oximetry 98 Oxygen Delivery Method Room Air 11/16/22 18:32 11/16/22 18:32 11/16/22 18:34 Temperature Pulse Rate 61 Respiratory Rate 10 L Blood Pressure 235/136 H 247/143 H Pulse Oximetry 99 Oxygen Delivery Method 11/16/22 18:34 11/16/22 18:41 11/16/22 18:41 Temperature Pulse Rate 62 64 Respiratory Rate 10 L 10 L Blood Pressure 267/137 H Pulse Oximetry 98 99 Oxygen Delivery Method 11/16/22 18:45 11/16/22 18:45 11/16/22 19:07 Temperature Pulse Rate 72 83 Respiratory Rate 12 Blood Pressure 234/125 H 231/126 H Pulse Oximetry 99 Oxygen Delivery Method 11/16/22 18:50 11/16/22 18:50 11/16/22 19:00 Temperature Pulse Rate 68 87 Respiratory Rate 11 L 13 Blood Pressure 225/117 H Pulse Oximetry 100 100 Oxygen Delivery Method 11/16/22 19:07 11/16/22 19:10 11/16/22 19:10 Temperature Pulse Rate 75 Respiratory Rate 17 Blood Pressure 231/126 H 184/98 H Pulse Oximetry 99 Oxygen Delivery Method 11/16/22 19:15 11/16/22 19:15 11/16/22 19:23 Temperature Pulse Rate 68 Respiratory Rate 14 Blood Pressure 191/99 H 198/108 H Pulse Oximetry 100 Oxygen Delivery Method Room Air 11/16/22 19:23 11/16/22 19:25 11/16/22 19:25 Temperature Pulse Rate 69 70 Respiratory Rate 16 25 H Blood Pressure 185/97 H Pulse Oximetry Oxygen Delivery Method 11/16/22 19:30 11/16/22 19:30 11/16/22 19:35 Temperature Pulse Rate 65 64 Respiratory Rate 20 20 Blood Pressure 188/102 H Pulse Oximetry Oxygen Delivery Method 11/16/22 19:35 11/16/22 19:40 11/16/22 19:40 Temperature Pulse Rate 61 Respiratory Rate 20 Blood Pressure 191/101 H 185/103 H Pulse Oximetry Oxygen Delivery Method 11/16/22 19:45 11/16/22 19:45 11/16/22 19:50 Temperature Pulse Rate 63 61 Respiratory Rate 22 23 Blood Pressure 194/111 H Pulse Oximetry Oxygen Delivery Method 11/16/22 19:50 11/16/22 19:55 11/16/22 19:55 Temperature Pulse Rate 62 Respiratory Rate 21 Blood Pressure 193/100 H 195/110 H Pulse Oximetry Oxygen Delivery Method 11/16/22 20:00 11/16/22 20:00 11/16/22 20:05 Temperature Pulse Rate 60 63 Respiratory Rate 41 H 53 H Blood Pressure 197/116 H Pulse Oximetry 92 100 Oxygen Delivery Method 11/16/22 20:05 11/16/22 20:10 11/16/22 20:10 Temperature Pulse Rate 62 Respiratory Rate 22 Blood Pressure 203/108 H 211/114 H Pulse Oximetry 97 Oxygen Delivery Method 11/16/22 20:15 11/16/22 20:15 11/16/22 20:20 Temperature Pulse Rate 63 63 Respiratory Rate 12 22 Blood Pressure 226/105 H Pulse Oximetry Oxygen Delivery Method 11/16/22 20:20 11/16/22 20:28 11/16/22 20:42 Temperature Pulse Rate 62 68 Respiratory Rate Blood Pressure 221/107 H 213/119 H 231/111 H Pulse Oximetry Oxygen Delivery Method 11/16/22 20:43 11/16/22 20:25 11/16/22 20:25 Temperature Pulse Rate 69 64 Respiratory Rate 22 Blood Pressure 231/111 H 213/109 H Pulse Oximetry 99 Oxygen Delivery Method 11/16/22 20:30 11/16/22 20:31 11/16/22 20:31 Temperature Pulse Rate 63 64 Respiratory Rate 21 22 Blood Pressure 197/113 H Pulse Oximetry 100 99 Oxygen Delivery Method Room Air 11/16/22 20:40 11/16/22 20:40 11/16/22 20:46 Temperature Pulse Rate 65 66 Respiratory Rate 40 H 42 H Blood Pressure 231/111 H 197/111 H Pulse Oximetry 100 96 Oxygen Delivery Method 11/16/22 20:55 11/16/22 21:00 11/16/22 21:10 Temperature Pulse Rate 71 71 66 Respiratory Rate 33 H 24 42 H Blood Pressure 204/113 H 196/109 H 206/115 H Pulse Oximetry 95 97 97 Oxygen Delivery Method 11/16/22 21:15 11/16/22 21:20 11/16/22 21:30 Temperature Pulse Rate 67 66 72 Respiratory Rate 47 H 40 H 39 H Blood Pressure 202/107 H 203/106 H 248/117 H Pulse Oximetry 98 98 98 Oxygen Delivery Method 11/16/22 21:35 11/16/22 21:40 11/16/22 21:45 Temperature Pulse Rate 70 69 75 Respiratory Rate 39 H 40 H 46 H Blood Pressure 197/110 H 194/102 H 204/114 H Pulse Oximetry 97 99 98 Oxygen Delivery Method 11/16/22 22:08 11/16/22 22:47 11/16/22 23:00 Temperature 98.7 F Pulse Rate 70 80 80 Respiratory Rate 22 26 H 22 Blood Pressure 229/114 H 238/123 H 200/106 H Pulse Oximetry 99 99 98 Oxygen Delivery Method Room Air Room Air Room Air 11/16/22 23:15 11/16/22 23:30 11/17/22 00:00 Temperature Pulse Rate 81 89 71 Respiratory Rate 20 20 20 Blood Pressure 198/105 H 182/96 H 166/104 H Pulse Oximetry 98 98 98 Oxygen Delivery Method Room Air Room Air Room Air 11/17/22 00:15 11/17/22 00:30 11/17/22 00:45 Temperature Pulse Rate 76 74 81 Respiratory Rate Blood Pressure 172/104 H 168/94 H 207/115 H Pulse Oximetry 98 98 98 Oxygen Delivery Method 11/17/22 01:16 11/17/22 01:30 Temperature Pulse Rate 74 72 Respiratory Rate 20 Blood Pressure 170/93 H 180/98 H Pulse Oximetry 97 97 Oxygen Delivery Method Room Air Oxygen Delivery Method Room Air Narrative Exam Narrative: Gen: Alert, lethargic, thin and disheveled 37 y.o. male, NAD HEENT: normocephalic, atraumatic, conjunctiva clear, sclera non-icteric, oral mucosa dry Neck: supple, full ROM, no JVD, trachea is midline Resp: Lungs CTA, non-labored breathing CV: RRR, no murmur or rubs Abd: soft, non-tender, normoactive BTs Skin: multiple skin wounds on hands and fingers with candidal type deposits on feet Neuro: Confused, one word sentances, GCS of 13 Extremities: moves all 4 extremities, is ambulatory, negative Niels?s sign Psyche: unable to assess Objective Labs 11/16/22 19:08 11/16/22 19:08 Labs: Laboratory Results - last 24 hr 11/16/22 11/16/22 11/16/22 19:08 19:08 19:15 WBC 9.4 RBC 4.75 Hgb 13.9 Hct 42.5 MCV 89.5 MCH 29.2 MCHC 32.7 RDW 14.0 Plt Count 205 Neut % (Auto) 68.2 Lymph % (Auto) 20.5 L [place] % (Auto) 9.0 Eos % (Auto) 1.1 L Baso % (Auto) 1.2 Neut # (Auto) 6400 Lymph # (Auto) 1900 [place] # (Auto) 800 Eos # (Auto) 100 Baso # (Auto) 100 PT 11.8 INR 1.0 Sodium 140 Potassium 3.7 Chloride 97 L Carbon Dioxide 33 H BUN 18 Creatinine 0.85 Estimated GFR > 60 BUN/Creatinine Ratio 21.2 Glucose 99 Calcium 9.0 Total Bilirubin 0.5 AST 31 ALT 20 Alkaline Phosphatase 77 Total Creatine Kinase 96 CK-MB (CK-2) TNP CK-MB (CK-2) Rel Index TNP Troponin I < 0.012 C-Reactive Protein < 0.5 NT-Pro-B Natriuret Pep 1330 H Total Protein 8.0 Albumin 4.2 Globulin 3.8 Albumin/Globulin Ratio 1.1 Lipase 43 U Opiates 300ng/mL cut Ur Oxycodone Screen Urine Methadone Screen Ur Barbiturates Screen U Tricyclic Antidepress Ur Phencyclidine Scrn Ur Amphetamines Screen U Methamphetamines Scrn Ur MDMA Scrn (Ecstasy) U Benzodiazepines Scrn Urine Cocaine Screen U Marijuana (THC) Screen SARS-CoV-2 (PCR) 11/16/22 11/17/22 22:20 01:29 WBC RBC Hgb Hct MCV MCH MCHC RDW Plt Count Neut % (Auto) Lymph % (Auto) [place] % (Auto) Eos % (Auto) Baso % (Auto) Neut # (Auto) Lymph # (Auto) [place] # (Auto) Eos # (Auto) Baso # (Auto) PT INR Sodium Potassium Chloride Carbon Dioxide BUN Creatinine Estimated GFR BUN/Creatinine Ratio Glucose Calcium Total Bilirubin AST ALT Alkaline Phosphatase Total Creatine Kinase CK-MB (CK-2) CK-MB (CK-2) Rel Index Troponin I C-Reactive Protein NT-Pro-B Natriuret Pep Total Protein Albumin Globulin Albumin/Globulin Ratio Lipase U Opiates 300ng/mL cut Negative Ur Oxycodone Screen Negative Urine Methadone Screen Negative Ur Barbiturates Screen Negative U Tricyclic Antidepress Negative Ur Phencyclidine Scrn Negative Ur Amphetamines Screen Positive H U Methamphetamines Scrn Positive H Ur MDMA Scrn (Ecstasy) Negative U Benzodiazepines Scrn Negative Urine Cocaine Screen Negative U Marijuana (THC) Screen Negative SARS-CoV-2 (PCR) Negative Assessment & Plan Assessment & Plan narrative: Ronen Howell is admitted to the inpatient ICU for a nifedipine drip for a hypertensive urgency, malignant and acute Hypertensive urgency, malignant and acute, present on admission * Nifedipine drip, titrate to a systolic of NO lower than 180 * eICU notified and has briefly seen the patient * echo in the am. Mental status change/abnormality, present on admission * Currently having his head scanned w/suspicion of a CVA due to very elevated pressure * CT of the head was negative, consider MRI during the day if worsening encephalopathy. Toxic metabolic encephalopathy due to polysubstance abuse, acute, present on admission * IV ativan administered in the ED * Monitor for withdrawals * While in the ED, patient reportedly may have used while in the bathroom, his items were confiscated * He is at high risk for leaving AMA * Altered status more likely due to methamphetamine/opioid intoxication. Other independent historians: none Discussion of results, plan of care with independent HCP/other: ED provider, eICU Reviewed outside records: prior ED admints VTE Prophylaxis: Wells risk score Enoxaparin 40 mg subQ once daily Bilateral SCDs Patient is admitted to the inpatient intensive care service due to the severity of disease, risks of further disease progression and this stay is expected to exceed 2 midnights. FEN: IV fluids: NS at 100 ml/hour, diet: heart healthy, labs: CBC, C/BMP, liver enzymes, Mag, PT/INR Consultants eICU care and involvement in the patient?s care is appreciated. Social determinants of health: drug abuse, probable lack of followup and access to primary care, unemployment status Dispo: unknown at this time Code status: Full Code presumed [X] I have utilized all available immediate resources to obtain, update, or review of the patient's current medications VTE Deep Vein Thrombosis/Pulmonary Embolism Present on Admission: No MIPS - DC The patient has current or prior documentation of left ventricular ejection fraction (LVEF) less than 40%, or moderate or severely depressed left ventricular systolic function.: No COVID-19 COVID-19 status: Negative Result date/Date tested (Pos, Neg/Pending): 11/17/22 Time Spent With Patient Critical Care time: I spent a total of 65 minutes of critical care time on this patient's care today; this time is exclusive of procedural time. Scores GCS [place] coma scale eye opening: To sound Delanson coma scale verbal response: Confused [place] coma scale motor response: Obey commands Ramez coma scale total score: 13 ABCD2 Age >= 60 years: no Initial BP. Either SBP >= 140 or DBP >= 90.: yes Clinical features of the TIA: speech disturbance without weakness Duration of symptoms: 10-59 minutes History of diabetes: no ABCD2 Score: 3 Wells' Criteria for PE Clinical signs and symptoms of DVT: No PE is #1 Dx or equally likely: No Heart rate > 100: No Immobilization at least 3 days or surg in previous 4 weeks: No History of PE or DVT: No Hemoptysis: No Malignancy w/Treatment within 6 months or palliative: No Wells' PE Score total: 0 Quality MIPS - Admit The patient?s Advance Care plan is not present because I confirmed today that the patient does not wish or was not able to name a surrogate decision maker or provide an Advance Care Plan.: Yes
--- NOTE | 2022-11-17 02:12 | DI.CT.S_ITS ---
PROCEDURE: CT HEAD/BRAIN WO CON INDICATIONS: malignant Htn, confusion TECHNIQUE: Noncontrast 4.5 mm thick angled axial sections acquired from the foramen magnum to the vertex, with coronal and sagittal reformats. For radiation dose reduction, the following was used: automated exposure control, adjustment of mA and/or kV according to patient size. COMPARISON: [facility], CT, CT HEAD WITHOUT CONTRAST, 04/25/2022, 21:00. [facility], CT, CT HEAD WITHOUT CONTRAST, 01/31/2018, 17:55. FINDINGS: Image quality: Excellent. CSF spaces: Basal cisterns are patent. No extra-axial fluid collections. Ventricles are normal in size and shape. Brain: No midline shift. No intracranial masses or hemorrhage. Patel-white matter interface is normal. Skull and face: Calvarium and visualized facial bones are intact, without suspicious lesions. Sinuses: There is a polyp or mucous retention cyst in the left maxillary sinus. The mastoids are clear. IMPRESSION: 1. No acute intracranial abnormalities. No significant discrepancy with the director of dietary radiology preliminary report. Dictated by: Renan Russo M.D. on 11/17/2022 at 7:54 Approved by: Renan Russo M.D. on 11/17/2022 at 7:55
[2022-11-17] MEDS: LACTATED RINGERS 1,000 ML 75 ML IV (03:07)
[2022-11-17] MEDS: OXYCODONE IR 5 MG TABLET PO (03:07)
[2022-11-17] MEDS: LORazepam 2 MG/ML INJ 1 MG IV (04:45)
--- NOTE | 2022-11-17 04:57 | P.TELICUCN_ITS ---
History of Present Illness Consult details IF CAMERA ACTIVATED, patient seen via real-time interactive audiovisual communication: Camera activated Chief complaint: headache/swollen back of neck Consent obtained for tele-hogshead filler care: Yes Patient Location: ICU Provider location (State): [place] Other participants/roles: RN; CHRISTINE Cobian Narrative: 29 y.o. w/ faily metamphetamine/Percocet abuse who presented w/ head/neck discomfort. Initial SBP was 230 mmHg. Treated w/ IVP hydralazine/labetalol. U tox (+) for metamphetamines. NCHCT was (-) after ICU arrival. Has not required nicardipine. [facility] Medical History Polysubstance abuse Social History Smoking Status: Current every day smoker substance use type: marijuana, IV drugs and methamphetamine Current Medications Current Medications Medications: Home Medications metoprolol tartrate 25 mg tablet 25 mg PO BID #30 tabs 11/23/20 [Rx Confirmed 11/16/22] quetiapine 300 mg tablet (Seroquel) 300 mg PO BEDTIME #14 tabs 11/23/20 [Rx Confirmed 11/16/22] Visit Medications (administered) Generic Name Dose Route Start Last Admin Trade Name Freq PRN Reason Stop Dose Admin Nicardipine HCl 25 mg/ Sodium 250 mls @ 50 mls/hr 11/16/22 22:30 11/17/22 04:02 Chloride IV 5 mg/hr TITRATE LEONARDO 50 mls/hr Titration Protocol 5 MG/HR Lactated Ringer's 1,000 mls @ 75 mls/hr 11/17/22 01:15 11/17/22 03:07 Lactated Ringers IV 75 mls/hr CONT LEONARDO Administration Lorazepam 1 mg 11/16/22 19:25 11/17/22 04:45 Lorazepam 2 Mg/Ml Inj IV 1 mg Q4HR PRN Administration Anxiety Oxycodone HCl 5 mg 11/17/22 01:03 11/17/22 03:07 Oxycodone Ir 5 Mg Tablet PO 5 mg Q3H PRN Administration Pain, Moderate (4-6) Exam Vital Signs (past 8 hours): - 11/16/22 21:00 11/16/22 21:10 11/16/22 21:15 Temperature Pulse Rate 71 66 67 Respiratory Rate 24 42 H 47 H Blood Pressure 196/109 H 206/115 H 202/107 H Pulse Oximetry 97 97 98 Oxygen Delivery Method Oxygen Flow Rate 11/16/22 21:20 11/16/22 21:30 11/16/22 21:35 Temperature Pulse Rate 66 72 70 Respiratory Rate 40 H 39 H 39 H Blood Pressure 203/106 H 248/117 H 197/110 H Pulse Oximetry 98 98 97 Oxygen Delivery Method Oxygen Flow Rate 11/16/22 21:40 11/16/22 21:45 11/16/22 22:08 Temperature Pulse Rate 69 75 70 Respiratory Rate 40 H 46 H 22 Blood Pressure 194/102 H 204/114 H 229/114 H Pulse Oximetry 99 98 99 Oxygen Delivery Method Room Air Oxygen Flow Rate 11/16/22 22:47 11/16/22 23:00 11/16/22 23:15 Temperature 98.7 F Pulse Rate 80 80 81 Respiratory Rate 26 H 22 20 Blood Pressure 238/123 H 200/106 H 198/105 H Pulse Oximetry 99 98 98 Oxygen Delivery Method Room Air Room Air Room Air Oxygen Flow Rate 11/16/22 23:30 11/17/22 00:00 11/17/22 00:15 Temperature Pulse Rate 89 71 76 Respiratory Rate 20 20 Blood Pressure 182/96 H 166/104 H 172/104 H Pulse Oximetry 98 98 98 Oxygen Delivery Method Room Air Room Air Oxygen Flow Rate 11/17/22 00:30 11/17/22 00:45 11/17/22 01:16 Temperature Pulse Rate 74 81 74 Respiratory Rate Blood Pressure 168/94 H 207/115 H 170/93 H Pulse Oximetry 98 98 97 Oxygen Delivery Method Oxygen Flow Rate 11/17/22 01:30 11/17/22 01:55 11/17/22 02:00 Temperature 99.2 F Pulse Rate 72 65 70 Respiratory Rate 20 15 20 Blood Pressure 180/98 H 172/106 H Pulse Oximetry 97 99 99 Oxygen Delivery Method Room Air Oxygen Flow Rate 0 11/17/22 02:15 11/17/22 02:15 11/17/22 02:44 Temperature Pulse Rate 70 Respiratory Rate 20 Blood Pressure 181/94 H 177/105 H Pulse Oximetry 95 Oxygen Delivery Method Oxygen Flow Rate 11/17/22 02:44 11/17/22 02:59 11/17/22 02:59 Temperature Pulse Rate 76 66 Respiratory Rate 18 Blood Pressure 188/100 H Pulse Oximetry 99 98 Oxygen Delivery Method Oxygen Flow Rate 11/17/22 03:00 11/17/22 03:30 11/17/22 03:40 Temperature Pulse Rate 68 69 80 Respiratory Rate 21 27 H 22 Blood Pressure Pulse Oximetry 98 99 99 Oxygen Delivery Method Oxygen Flow Rate 11/17/22 03:40 11/17/22 03:45 11/17/22 03:45 Temperature Pulse Rate 85 Respiratory Rate 14 Blood Pressure 188/113 H 204/109 H Pulse Oximetry 99 Oxygen Delivery Method Oxygen Flow Rate 11/17/22 04:00 11/17/22 04:00 11/17/22 04:15 Temperature Pulse Rate 77 Respiratory Rate 22 Blood Pressure 188/108 H 170/101 H Pulse Oximetry 97 Oxygen Delivery Method Oxygen Flow Rate 11/17/22 04:15 11/17/22 04:30 11/17/22 04:30 Temperature Pulse Rate 83 99 H Respiratory Rate 27 H Blood Pressure 165/98 H Pulse Oximetry 98 98 Oxygen Delivery Method Oxygen Flow Rate Oxygen Delivery Method Room Air Oxygen Flow Rate 0 Resp Effort & Inspection: normal respiratory effort and able to speak in complete sentences Cardio Rate: regular rate Rhythm: regular rhythm Neuro Other: fluid speech; followed commands; able to recall his Objective Labs 11/16/22 19:08 11/16/22 19:08 Labs: Laboratory Results - last 24 hr 11/16/22 11/16/22 11/16/22 19:08 19:08 19:15 WBC 9.4 RBC 4.75 Hgb 13.9 Hct 42.5 MCV 89.5 MCH 29.2 MCHC 32.7 RDW 14.0 Plt Count 205 Neut % (Auto) 68.2 Lymph % (Auto) 20.5 L [place] % (Auto) 9.0 Eos % (Auto) 1.1 L Baso % (Auto) 1.2 Neut # (Auto) 6400 Lymph # (Auto) 1900 [place] # (Auto) 800 Eos # (Auto) 100 Baso # (Auto) 100 PT 11.8 INR 1.0 Sodium 140 Potassium 3.7 Chloride 97 L Carbon Dioxide 33 H BUN 18 Creatinine 0.85 Estimated GFR > 60 BUN/Creatinine Ratio 21.2 Glucose 99 Calcium 9.0 Total Bilirubin 0.5 AST 31 ALT 20 Alkaline Phosphatase 77 Total Creatine Kinase 96 CK-MB (CK-2) TNP CK-MB (CK-2) Rel Index TNP Troponin I < 0.012 C-Reactive Protein < 0.5 NT-Pro-B Natriuret Pep 1330 H Total Protein 8.0 Albumin 4.2 Globulin 3.8 Albumin/Globulin Ratio 1.1 Lipase 43 U Opiates 300ng/mL cut Ur Oxycodone Screen Urine Methadone Screen Ur Barbiturates Screen U Tricyclic Antidepress Ur Phencyclidine Scrn Ur Amphetamines Screen U Methamphetamines Scrn Ur MDMA Scrn (Ecstasy) U Benzodiazepines Scrn Urine Cocaine Screen U Marijuana (THC) Screen SARS-CoV-2 (PCR) 11/16/22 11/17/22 22:20 01:29 WBC RBC Hgb Hct MCV MCH MCHC RDW Plt Count Neut % (Auto) Lymph % (Auto) [place] % (Auto) Eos % (Auto) Baso % (Auto) Neut # (Auto) Lymph # (Auto) [place] # (Auto) Eos # (Auto) Baso # (Auto) PT INR Sodium Potassium Chloride Carbon Dioxide BUN Creatinine Estimated GFR BUN/Creatinine Ratio Glucose Calcium Total Bilirubin AST ALT Alkaline Phosphatase Total Creatine Kinase CK-MB (CK-2) CK-MB (CK-2) Rel Index Troponin I C-Reactive Protein NT-Pro-B Natriuret Pep Total Protein Albumin Globulin Albumin/Globulin Ratio Lipase U Opiates 300ng/mL cut Negative Ur Oxycodone Screen Negative Urine Methadone Screen Negative Ur Barbiturates Screen Negative U Tricyclic Antidepress Negative Ur Phencyclidine Scrn Negative Ur Amphetamines Screen Positive H U Methamphetamines Scrn Positive H Ur MDMA Scrn (Ecstasy) Negative U Benzodiazepines Scrn Negative Urine Cocaine Screen Negative U Marijuana (THC) Screen Negative SARS-CoV-2 (PCR) Negative Assessment & Plan Assessment and plan (1) Hypertensive emergency: Problem details: Probably due to problem #2 Status: Acute Plan: -Goal SBP 170-180 mmHg for first 6-8 hrs with gradual lowering after that -Continue PRN IVP antihypertensives -On metoprolol 25 mg PO BID (2) Polysubstance abuse: Status: Acute Plan: -Cessation counseling -Watch for agitation/withdrawal Time Spent With Patient Critical Care time: I spent a total of 20 minutes of time on this patient's care today..
[2022-11-17] MEDS: NICARDIPINE 25 MG in SODIUM CHLORIDE 0.9% 240 ML IV (06:42)
[2022-11-17] MEDS: SODIUM CHLORIDE 0.9% 250 ML 25 ML (06:51)
--- NOTE | 2022-11-17 07:37 | PC.NURSE ---
patient states he smokes around 10 blues a day; usually starts in the morning and smokes throughout day
--- NOTE | 2022-11-17 09:20 | P.DS_ITS ---
History of Present Illness History of Present Illness Date Patient Seen: 11/17/22 Time Patient Seen: 09:20 Chief complaint: headache/swollen back of neck Narrative: Per admitting provider, Unable to obtain a history directly from the patient. Per the ED provider, Ronen Howell is 29-year-old male daily smoker with history methamphetamine and PERC 30 use states he last used sometime this morning, denies any history of IV drug abuse, does have a history of endocarditis presents with a chief complaint of a fullness and discomfort in the back of his head and neck.? He is got a generalized headache without obvious provocation or palliation.? He denies neurologic symptoms such as blurred vision, trouble with speech, dizziness or nu mbness, tingling and weakness of extremities.? He denies any chest pain or shortness of breath but does have generalized abdominal pain.? He is mildly nauseous but denies any vomiting. For me, he states he finds it hard to urinate, feels like he has to have a bowel movement when he urinates and has new onset numbness of his right great toe. Chest xray is negative for any acute cardiopulmonary abnormality. EKG left ventricular hypertrophy. His temp is 99.2? blood pressure 172/106 heart rate 65 respiratory rate 15 oxygen saturation 99% on room air he weighs 56.5 kg with a BMI of 19.5. CBC is unremarkable, chemistries are unremarkable does have a elevated proBNP of 13 30 u/a negative for a UTI, urine toxicology is positive for methamphetamine and amphetamine. COVID-[address] of the head done emergently after he reached the unit due to possible mental status change concerning for a CVA due to prolonged hypertensive period, it is negative. Discharge Providers Provider Date of admission: 11/17/22 01:25 Discharge Date: 11/17/22 Primary care physician: Doctor Charisse MD Consults: 11/17/22 01:03 Consult to Tele-ultrasonic tester Routine Comment: Consulting Provider: [facility] [employer] Reason for consultation: [employer] Has provider been notified: Yes Discharge provider: Milton Chapa DO Summary Hospital Course Discharge Diagnosis: Hypertensive emergency: Polysubstance abuse Hospital Course: This is a 37-year-old male with a past medical history of hypertension and polysubstance abuse who was admitted with hypertensive emergency with presumed symptoms of headache. Of end-organ dysfunction on laboratory evaluation, an echocardiogram was performed early in the morning which showed left ventricular hypertrophy but a normal ejection fraction and no focal abnormalities. He was being weaned from nicardipine infusion, and shortly after admission the patient wished to leave against medical advice. The patient was able to understand and comprehend the risks of leaving including, but not limited to, stroke and . He still wished to leave against medical advice. He had not been taking his home BP medications for the past few months, so his home medications were prescribed and sent to his home pharmacy. Recommend outpatient PCP follow up as soon as possible. Time Spent with Patient Time spent: Greater than 30 minutes Exam Vital Signs (past 8 hours): - 11/17/22 01:30 11/17/22 01:55 11/17/22 02:00 Temperature 99.2 F Pulse Rate 72 65 70 Respiratory Rate 20 15 20 Blood Pressure 180/98 H 172/106 H Pulse Oximetry 97 99 99 Oxygen Delivery Method Room Air Oxygen Flow Rate 0 11/17/22 02:15 11/17/22 02:15 11/17/22 02:44 Temperature Pulse Rate 70 Respiratory Rate 20 Blood Pressure 181/94 H 177/105 H Pulse Oximetry 95 Oxygen Delivery Method Oxygen Flow Rate 11/17/22 02:44 11/17/22 02:59 11/17/22 02:59 Temperature Pulse Rate 76 66 Respiratory Rate 18 Blood Pressure 188/100 H Pulse Oximetry 99 98 Oxygen Delivery Method Oxygen Flow Rate 11/17/22 03:00 11/17/22 03:30 11/17/22 03:40 Temperature Pulse Rate 68 69 80 Respiratory Rate 21 27 H 22 Blood Pressure Pulse Oximetry 98 99 99 Oxygen Delivery Method Oxygen Flow Rate 11/17/22 03:40 11/17/22 03:45 11/17/22 03:45 Temperature Pulse Rate 85 Respiratory Rate 14 Blood Pressure 188/113 H 204/109 H Pulse Oximetry 99 Oxygen Delivery Method Oxygen Flow Rate 11/17/22 04:00 11/17/22 04:00 11/17/22 04:15 Temperature Pulse Rate 77 Respiratory Rate 22 Blood Pressure 188/108 H 170/101 H Pulse Oximetry 97 Oxygen Delivery Method Oxygen Flow Rate 11/17/22 04:15 11/17/22 04:30 11/17/22 04:30 Temperature Pulse Rate 83 99 H Respiratory Rate 27 H Blood Pressure 165/98 H Pulse Oximetry 98 98 Oxygen Delivery Method Oxygen Flow Rate 11/17/22 05:00 11/17/22 05:17 11/17/22 04:45 Temperature Pulse Rate 80 79 Respiratory Rate 18 Blood Pressure 175/108 H 187/109 H Pulse Oximetry 97 98 Oxygen Delivery Method Oxygen Flow Rate 11/17/22 04:45 11/17/22 05:00 11/17/22 05:00 Temperature Pulse Rate 82 Respiratory Rate Blood Pressure 177/100 H 175/108 H Pulse Oximetry 98 Oxygen Delivery Method Oxygen Flow Rate 11/17/22 05:15 11/17/22 05:15 11/17/22 05:46 Temperature Pulse Rate 88 Respiratory Rate Blood Pressure 187/109 H 185/102 H Pulse Oximetry 98 Oxygen Delivery Method Oxygen Flow Rate 11/17/22 05:30 11/17/22 05:31 11/17/22 05:31 Temperature Pulse Rate 91 H 89 Respiratory Rate Blood Pressure 213/129 H Pulse Oximetry 98 98 Oxygen Delivery Method Oxygen Flow Rate 11/17/22 05:34 11/17/22 05:34 11/17/22 05:45 Temperature Pulse Rate 84 86 Respiratory Rate Blood Pressure 198/124 H Pulse Oximetry 98 97 Oxygen Delivery Method Oxygen Flow Rate 11/17/22 05:45 11/17/22 06:00 11/17/22 06:00 Temperature Pulse Rate 86 Respiratory Rate Blood Pressure 185/102 H 164/100 H Pulse Oximetry 98 Oxygen Delivery Method Oxygen Flow Rate 11/17/22 06:15 11/17/22 06:15 11/17/22 06:30 Temperature Pulse Rate 82 Respiratory Rate Blood Pressure 177/103 H 179/100 H Pulse Oximetry 97 Oxygen Delivery Method Oxygen Flow Rate 11/17/22 06:30 11/17/22 06:45 11/17/22 06:45 Temperature Pulse Rate 80 84 Respiratory Rate Blood Pressure 191/108 H Pulse Oximetry 99 98 Oxygen Delivery Method Oxygen Flow Rate Oxygen Delivery Method Room Air Oxygen Flow Rate 0 Narrative Exam Narrative: Gen: Alert, thin and disheveled 37 y.o. male, agitated, anxious to leave HEENT: normocephalic, atraumatic, conjunctiva clear, sclera non-icteric, oral mucosa dry Neck: supple, full ROM, no JVD, trachea is midline Resp: Lungs CTA, non-labored breathing CV: RRR, no murmur or rubs Abd: soft, non-tender, normoactive BTs Objective Labs 11/16/22 19:08 11/16/22 19:08 Labs: Laboratory Results - last 24 hr 11/16/22 11/16/22 11/16/22 19:08 19:08 19:15 WBC 9.4 RBC 4.75 Hgb 13.9 Hct 42.5 MCV 89.5 MCH 29.2 MCHC 32.7 RDW 14.0 Plt Count 205 Neut % (Auto) 68.2 Lymph % (Auto) 20.5 L [place] % (Auto) 9.0 Eos % (Auto) 1.1 L Baso % (Auto) 1.2 Neut # (Auto) 6400 Lymph # (Auto) 1900 [place] # (Auto) 800 Eos # (Auto) 100 Baso # (Auto) 100 PT 11.8 INR 1.0 Sodium 140 Potassium 3.7 Chloride 97 L Carbon Dioxide 33 H BUN 18 Creatinine 0.85 Estimated GFR > 60 BUN/Creatinine Ratio 21.2 Glucose 99 Calcium 9.0 Total Bilirubin 0.5 AST 31 ALT 20 Alkaline Phosphatase 77 Total Creatine Kinase 96 CK-MB (CK-2) TNP CK-MB (CK-2) Rel Index TNP Troponin I < 0.012 C-Reactive Protein < 0.5 NT-Pro-B Natriuret Pep 1330 H Total Protein 8.0 Albumin 4.2 Globulin 3.8 Albumin/Globulin Ratio 1.1 Lipase 43 U Opiates 300ng/mL cut Ur Oxycodone Screen Urine Methadone Screen Ur Barbiturates Screen U Tricyclic Antidepress Ur Phencyclidine Scrn Ur Amphetamines Screen U Methamphetamines Scrn Ur MDMA Scrn (Ecstasy) U Benzodiazepines Scrn Urine Cocaine Screen U Marijuana (THC) Screen SARS-CoV-2 (PCR) 11/16/22 11/17/22 22:20 01:29 WBC RBC Hgb Hct MCV MCH MCHC RDW Plt Count Neut % (Auto) Lymph % (Auto) [place] % (Auto) Eos % (Auto) Baso % (Auto) Neut # (Auto) Lymph # (Auto) [place] # (Auto) Eos # (Auto) Baso # (Auto) PT INR Sodium Potassium Chloride Carbon Dioxide BUN Creatinine Estimated GFR BUN/Creatinine Ratio Glucose Calcium Total Bilirubin AST ALT Alkaline Phosphatase Total Creatine Kinase CK-MB (CK-2) CK-MB (CK-2) Rel Index Troponin I C-Reactive Protein NT-Pro-B Natriuret Pep Total Protein Albumin Globulin Albumin/Globulin Ratio Lipase U Opiates 300ng/mL cut Negative Ur Oxycodone Screen Negative Urine Methadone Screen Negative Ur Barbiturates Screen Negative U Tricyclic Antidepress Negative Ur Phencyclidine Scrn Negative Ur Amphetamines Screen Positive H U Methamphetamines Scrn Positive H Ur MDMA Scrn (Ecstasy) Negative U Benzodiazepines Scrn Negative Urine Cocaine Screen Negative U Marijuana (THC) Screen Negative SARS-CoV-2 (PCR) Negative [facility] Medical History Polysubstance abuse Social History Smoking Status: Current every day smoker substance use type: marijuana, IV drugs and methamphetamine Discharge Plan Discharge Plan Patient Disposition: Left Against Medical Advice Provider Discharge Comment: You were admitted to the hospital with high blood pressure, you are mildly withdrawing from opiates. You elected to leave against medical advice, your BP medications were refilled. Please follow up with your primary care provider as soon as possible. Return to the ER if you develop headaches, weakness, numbness or slurred speech. Discharge orders & Medications Prescriptions: Continued quetiapine [Seroquel] 300 mg tablet 300 mg PO BEDTIME 14 Days Qty: 14 0RF Rx Instructions: states has not been taking since may. metoprolol tartrate 25 mg tablet 25 mg PO BID 30 Days Qty: 60 0RF Rx Instructions: states has not been taking since may Follow up/Referrals: Doctor Mcqueen MD [Primary Care Provider] - Diet/Activity/Treatments Diet: Diet as Tolerated Activity: As tolerated Visit Report/Discharge Packet Stand Alone Forms: Patient Portal/API, Stroke Signs & Symptoms Discharge Data Primary Care Provider: Doctor Charisse Quality VTE Deep Vein Thrombosis/Pulmonary Embolism Present on Admission: No
--- NOTE | 2022-11-17 09:30 | PC.NURSE ---
patient left MD JOAN at bedside, education provided, form signed, personal items returned, ambulated with steady gait.
== END 2022-11-17 09:33 | disposition left against medical advice (07) | DRG 304 ==
LOC: ED 11-17 00:24 → AC 11-17 01:27 → ICU 11-17 01:35
PROVIDERS: Admitting Provider Nurse Practitioner Family; Emergency Provider Emergency Medicine; Referring Provider Emergency Medicine; Visit Provider Nurse Practitioner Family
DX: I16.0 Hypertensive urgency (principal); G92.8 Other toxic encephalopathy; F17.200 Nicotine dependence, unspecified, uncomplicated; F15.10 Other stimulant abuse, uncomplicated; F11.10 Opioid abuse, uncomplicated; Z53.29 Procedure and treatment not carried out because of patient's decision for other reasons; Z20.822 Contact with and (suspected) exposure to COVID-19
CPT/HCPCS: 36415; 70450; 71045; 80053; 80305; 82550; 83690; 83880; 84484; 85025; 85610; 86140; 87086; 87635; 93005; 93010; 93306; 96365; 96366; 96375; 99284; C9803; J0360; J2060

== ENCOUNTER → 2023-03-30 11:02 | Outpatient (CLI) | payer OTHER, SELFPAY ==
[2022-11-17 01:34] VITALS: BMI 19.5
== END ==
PROVIDERS: Referring Provider Internal Medicine Cardiovascular Disease; Visit Provider Internal Medicine Cardiovascular Disease
DX: M25.569 Pain in unspecified knee (principal)
CPT/HCPCS: 73562

== ENCOUNTER → 2023-04-15 14:11 | Outpatient (CLI) | payer OTHER, SELFPAY ==
[2022-11-17 01:34] VITALS: BMI 19.5
--- NOTE | 2023-04-15 | DI.RAD.S_ITS ---
PROCEDURE: XR KNEE LT 3V INDICATIONS: KNEE PAIN TECHNIQUE: 3 views of the knee were acquired. COMPARISON: [facility], , KNEE 3VW (LT), 04/02/2014, 9:16. FINDINGS: Bones: No fractures or dislocations. No suspicious bony lesions. Soft tissues: No joint effusion. No suspicious soft tissue calcifications. IMPRESSION: No significant osseous abnormality. If clinically indicated, MRI could be considered for further evaluation. Dictated by: Bruce Hayes M.D. on 04/15/2023 at 14:39 Approved by: Bruce Hayes M.D. on 04/15/2023 at 14:41
== END ==
PROVIDERS: Referring Provider Internal Medicine Cardiovascular Disease; Visit Provider Internal Medicine Cardiovascular Disease
DX: M25.562 Pain in left knee (principal)
CPT/HCPCS: 73562